=== PATIENT | male | born 2005 | race Caucasian/White ===

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

== ENCOUNTER 2024-07-15 12:23 | Emergency (ER) | payer OTHER, SELFPAY ==
[2024-07-15 12:40] VITALS: BP 120/76; PULSE 105; RESP 18; TEMP 36.7; O2SAT 98
--- NOTE | 2024-07-15 12:51 | ED.NAVMDI ---
HPI - Nausea/Vomiting/Diarrhea General Chief complaint: Nausea/Vomiting/Diarrhea Stated complaint: nausea/abdo pain/diarrhea/chills History of Present Illness HPI Narrative: Patient presents for evaluation of diarrhea nausea and vomiting. No fever no body aches patient states he is tolerating liquids well. Denies any blood or mucus in his stools. Related Data Home Medications ?Medication ?Instructions ?Recorded ?Confirmed ?Last Taken ?Type alprazolam 0.5 mg tablet mg 07/15/24 Unknown History lisdexamfetamine 30 mg capsule mg 07/15/24 Unknown History (Vyvanse) ropinirole 0.5 mg tablet mg 07/15/24 Unknown History trazodone 50 mg tablet mg 07/15/24 Unknown History Allergies Allergy/AdvReac Type Severity Reaction Status Date / Time Cephalosporins Allergy Unknown Rash Verified 07/15/24 12:33 Penicillins Allergy Unknown Rash Verified 07/15/24 12:33 citalopram AdvReac Intermediate Diarrhea Verified 07/15/24 12:33 venlafaxine (From Effexor) AdvReac Aggitation, Verified 07/15/24 12:33 Insomnia, Diarrhea, Angry, Bad mood Review of Systems Review of Systems: CONSTITUTIONAL: Denies fever, chills, or sweats. EYES: Denies visual changes, redness, or discharge. ENT: Denies rhinorrhea, congestion, sore throat, or otalgia. CARDIOVASCULAR: Denies chest pain, palpitations, or edema. RESPIRATORY: Denies cough or dyspnea. GASTROINTESTINAL: Denies abdominal pain, nausea, vomiting, or diarrhea. GENITOURINARY: Denies dysuria or hematuria. SKIN: Denies rash or itching. MUSCULOSKELETAL: Denies back pain, joint pain, or myalgia. NEUROLOGIC: Denies headache, numbness, or weakness. PSYCHIATRIC: Denies anxiety or depression. [facility] Past Medical History Medical History ) Asthma Social History Social History ) Smoking status: Never smoker Alcohol intake: never Substance use: never Substance use type: does not use Lack of Transportation: No Lack of Food: Never True Current Housing: I Have Housing Concerned About Future Housing: No Difficulty Paying Gas/Electric Bills: No Difficulty Paying for Meds: No Currently Unemployed: No Education: High School Diploma/GED Difficulty w/ Childcare or Family Care: No Living arrangements: with family Occupation/Education: occupation Gender identity (if verbalized by the patient): Male Sexual Orientation (if Verbalized by the Patient): Straight or Heterosexual Comments At time of signature, agree with nursing past medical, surgical, social and family history. There is no relevant family history pertinent to the presenting complaint Exam Narrative: GENERAL: Well-appearing, well-nourished, and in no acute distress. HEAD: Normocephalic, atraumatic. EYES: PERRLA and EOMI. ENT: Nares clear, no rhinorrhea or epistaxis. Mucous membranes moist. NECK: Supple. CHEST: Clear to auscultation. No respiratory distress. HEART: Regular rate and rhythm. No murmur heard. Normal peripheral pulses. ABDOMEN: Soft, nontender, nondistended, normal active bowel sounds. EXTREMITIES: Normal range of motion. No edema. SKIN: Warm, dry, no rash. NEURO: No focal deficits. Alert and oriented x3. [place] Coma Scale Eye Opening: Spontaneous 4 [place] Coma Scale Motor: Obeys Commands 6 [place] Coma Scale Verbal: Oriented 5 [place] Coma Scale Total 15 Course Course Level of Care: Express Care Visit Vital Signs Vital signs: Vital Signs Temperature 36.7 C 07/15/24 12:40 Pulse Rate 105 H 07/15/24 12:40 Respiratory Rate 18 07/15/24 12:40 Blood Pressure 120/76 07/15/24 12:40 Pulse Oximetry 98 07/15/24 12:40 Oxygen Delivery Room Air 07/15/24 12:40 Temperature 36.7 C 07/15/24 12:40 Pulse Rate 105 H 07/15/24 12:40 Respiratory Rate 18 07/15/24 12:40 Blood Pressure 120/76 07/15/24 12:40 Pulse Oximetry 98 07/15/24 12:40 Oxygen Delivery Room Air 07/15/24 12:40 Discharge Plan Discharge Clinical Impression: Nausea & vomiting, Diarrhea in adult patient Patient Disposition: Home, Self-Care Condition: Stable Instructions: Antibiotic Form Additional Instructions: Clear liquids for the next 8-10 hours, then advance to a bland diet as tolerated A bland diet can consist of--BRAT diet which is bananas, rice, applesauce, and toast Avoid fried, greasy, fatty, fried foods Avoid caffeine, nicotine, and alcohol Return to your regular diet in the next 3-4 days Medication as directed for nausea and vomiting -If you have any worsening of symptoms or any other concerns please go to the ED immediately. Patient Language: Kyrgyz Prescriptions: New ondansetron 4 mg tablet,disintegrating 4 mg PO Q8H PRN (Reason: nausea and vomiting) Qty: 10 0RF No Action trazodone 50 mg tablet alprazolam 0.5 mg tablet ropinirole 0.5 mg tablet lisdexamfetamine [Vyvanse] 30 mg capsule zolpidem [Ambien] 5 mg tablet 5 mg PO QHS PRN (Reason: insomnia) Qty: 30 0RF Follow-up/Referrals: PHYSICIAN NOT ON STAFF,NONSTAFF [Primary Care Provider] - Stand Alone Forms: Work/School Release IP
--- OUTSIDE RECORDS SUMMARY | 2024-07-20 04:50 | XMS_ITS | Encounter Summary ---
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 Insurance: [employer] ; [facility] Referral Required: NO Benefit exclusion: NO Authorization: NOT REQUIRED Comments: Benefits verified online @ [employer] Provider Website. [employer] . Coverage active effective 08/01/2020. ID# [id number] 05. 500 Deductible (met); 1000 Out of Pocket (500 applied); 80/20 Co-Insurance; No Copay; No Referral required; No Pre-Cert required. S/W Vivian Santoyo @ [employer] Pre-Cert Dept . CPT 75681; 78026 chordee repair no Pre-Cert/Pre-D required. Call ref# Vivian CrChandler 07/13/2021 10:39 AM EST. S/W Michelle Pierce @ [facility] . Coverage active effective 08/01/2020. ID# [id number]. 150 Deductible (12.51 applied); 1058 Out of Pocket (190.04 applied); No Co-Insurance. Select. No Pre-Cert required. [facility] secondary insurance to [employer]. Call ref# Michelle CollazoChandler 07/13/2021. JL 07/13/2021 Luis Villafuerte , A Referral is needed for the patient listed below. Patient: Rashaad Rodney : 2005 DATE OF SERVICE: 07.29.2021 CPT : 38833 DIAGNOSIS CODE : Painful penile erection [N48.30] / Chordee [N48.89] DR : Fortunato Hammond INS : PRIMARY CIGNA / SECONDARY Pat Toth Pre-Certification Coordinator Department of Surgery [facility] ([facility]) Work: [phone] [email or web address] ANIC DRIVER documented in this encounter Plan of Treatment Not on file documented as of this encounter Visit Diagnoses Not on filedocumented in this encounter Care Teams Electrical Engineering Manager Relationship Specialty Start Date End Date Tiff Frost MD [address] [place] [address] PCP - General Pediatrics 10/17/20 documented as of this encounter
--- OUTSIDE RECORDS SUMMARY | 2024-07-20 04:50 | XMS_ITS | Encounter Summary ---
Author Organization [facility] Address [address] [place] [address] Care Team Providers Care Direct Mail Manager Name Role Phone Tiff Frost MD Primary Care Provider [phone] Encounter Details Date Type Department Care Team (Late st Contact Info) Description 10/31/2023 Orders Only [facility] Occupatiuonal Health [address] 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 tuberculosis). ??Patients with recent exposure to TB infected individuals exhibiting a negative T-SPOT.TB result should be considered for retesting within 6 weeks or if other relevant clinical symptoms indicate. ??Results from T-SPOT.TB testing must be used in conjunction with each individual's epidemiological history, current medical status, and results of other diagnostic evaluations. ??The T-SPOT.TB test is qualitative and results are reported as positive, borderline or negative, given that the test controls perform as expected. In line with the Centers for Disease Control and Prevention's 2010 recommendation to report quantitative measurements alongside the qualitative result, the laboratory provides spot counts for informational purposes only. ??The T-SPOT.TB test should not be interpreted as a quantitative test. T-SPOT.TB Panel A Spot Count 1 [facility] ([place] T-SPOT.TB Panel B Spot Count 0 [facility] T-SPOT.TB Negative Control Passed [facility] T-SPOT.TB Positive Control Passed [facility] Comment: Test Performed at: [employer] [address] [place] [address] ??[id number] ? JENNIFER MONTIEL,PHD Blood 10/31/2023 3:06 PM CDT 10/31/2023 3:16 PM CDT Narrative [facility] - 11/02/2023 3:53 PM CDT Bill to [facility] [employer] - [address] Patient is employed by/enrolled at:->[employer] us Sandip Guerra MD LAB MICROBIOLOGY - GENERAL OR DERABLES Final Result [facility] [address] [facility] Department [place] [address] documented in this encounter Visit Diagnoses Diagnosis Pre-employment health screening examination- Primary Health examination of defined subpopulation Pre-employment health screening examination Health examination of defined subpopulation documented in this encounter Care Teams Direct Mail Manager Relationship Specialty Start Date End Date Tiff Frost MD [address] [place] [address] PCP - General Pediatrics 10/17/20 documented as of this encounter
--- OUTSIDE RECORDS SUMMARY | 2024-07-20 04:50 | XMS_ITS | Encounter Summary ---
Author Organization [facility] Address [address] [place] [address] Phone Care Team Providers Care Classifier Tender Name Role Phone Tiff Frost MD Primary Care Provider [phone] Encounter Details Date Type Department Care Team (Late st Contact Info) Description 01/16/2021 Telephone [facility] 2nd [place] [address] [place] [address] Fortunato Hammond MD [address] [place] [address] [address] [address] [place], [place] [id number] Social History Tobacco Use Types Packs/Day Years Used Date Smoking Tobacco: Never Sex and Gender Information Value Date Recorded Sex Assigned at Not on file 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 He notices some bump/irregularity on the shaft of the penis. His biggest concern is painful nighttime erections. These occur at least once a night. He says his erections are straight. I reassured him that this will improve. At this point I would not try to pharmacologically suppressed testosterone production. He will call with continued/progressive concerns documented in this encounter Plan of Treatment Not on file documented as of this encounter Visit Diagnoses Not on filedocumented in this encounter Care Teams Classifier Tender Relationship Specialty Start Date End Date Tiff Frost MD [address] [place] [address] PCP - General Pediatrics 10/17/20 documented as of this encounter
--- OUTSIDE RECORDS SUMMARY | 2024-07-20 04:50 | XMS_ITS | Encounter Summary ---
Author Organization [facility] Healthcare Address [address] [place] [address] Care Team Providers Care Organic Chemist Name Role Phone Tiff Frost MD Primary Care Provider [phone] Encounter Details Date Type Department Care Team (Late st Contact Info) Description 01/01/2021 4:46 PM CDT Anesthesia Event [facility] [place] [address] Carlton Calvo MD [address] [place] [address] Tremayne Hernandez NP [address] [facility] [place] [address] Anesthesia Record Procedure Summary Procedure Name Responsible Anesthesiologist Anesthesia Start Time Anesthesia Stop Time CHORDEE REPAIR (Penis) Carlton Calvo MD 01/01/21 1646 01/01/21 1825 Events Date Time Event Comment 01/01/2021 1458 1646 An Start 1650 An Start Data 1650 In Room 1653 An Induction The patient was reevaluated immediately before moderate or deep sedation use and before anesthesia induction. 1658 An LMA 1702 Anesthesia Ready 1709 Incision Start 1819 Airway Removed 181 Out of Room 1825 Handoff to RN I completed my handoff to the receiving nurse during which we: 1. Patient identified 2. Responsible provider identified 3. Pertinent medical history reviewed 4. Procedure type and surgical course discussed 5. Intraoperative anesthetic management and any significant issues discussed 6. Expectations and concerns for postop period discussed 7. Questions solicited from receiving nurse 8. Patient disposition at the time of handoff: PACU 1825 An Stop Meds Name Total lidocaine 1 % PF 40 mg propofol 500 mg dexamethasone 4 mg/ml 4 mg ondansetron PF 2 mg/mL 4 mg HYDROmorphone 0.2 mg/mL 200 mcg midazolam PF 2 mg LR 0 mL * Agents Name N2O O2 Air Sevoflurane Inspired Sevoflurane * Blood No blood administrations on file. Lines, Drains, and Airways Type Details Placement Removal Oral/Nasal Airway Placement Date: 01/01/21; Non-Surgical Airway Device: Oral pharyngeal airway; Placed By: Anesthesiologist; Removal Date: 01/01/21; Removal Time: 184801/01/21 0000 by Goldie Perez RN 01/01/21 184 by Goldie Perez RN Peripheral IV Placement Date: 01/01/21; Placement Time: 154; Catheter Size: 22 G; Orientation: Left, Posterior; Location: Hand; Site Prep: Chlorhexidine; Inserted by: Kari Rose RN; Insertion Attempts: 1; Patient Tolerance: Tolerated well; Removal Date: 01/01/21; Removal Time: 1919; Removal Reason: Discharge 01/01/21 1543 by Shaista Patterson RN 01/01/21 192 by Goldie Perez RN Supraglottic Airway Placement Date: 01/01/21; Placement Time: 1712 (created via procedure documentation); Mask Ventilation: 1; Size: 4; Insertion Attempts: 1; Removal Date: 01/01/21; Removal Time: 181801/01/21 1713 by Carlton Calvo MD 01/01/21 1819 by Sera Quintanilla MD RETIRED Surgical Site 01/01/21; 1743; Pe nis; 07/03/24 (Retired LDA, 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 [employer] with LDA Utility); 1213 (Retired LDA, 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 [employer] with LDA Utility) 01/01/21 1743 by Priscilla Mosley RN 07/03/24 1213 by Discharge Provider, Automatic documented in this encounter Social History Tobacco Use Types Packs/Day Years Used Date Smoking Tobacco: Never Sex and Gender Information Value Date Recorded Sex Assigned at Not on file 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 Gender Identity Not on file Sexual Orientation Not on file documented as of this encounter OR Notes * Anesthesia Postprocedure Evaluation - Sera Quintanilla MD - 01/01/2021 7:02 PM CDT Patient: Rashaad Rodney Procedure Summary Date: 01/01/21 Room / Location: [address] OPERATING ROOM Anesthesia Start: 164 Anesthesia Stop: 1824 Procedure: CHORDEE REPAIR (N/A Penis) 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]) Providers: Fortunato Hammond MD Responsible Provider: aCrlton Calvo MD Anesthesia Type: general ASA Status: 2 Anesthesia Type: general Last vitals BP 101/53 (BP Location: Right arm, Patient Position: Lying) Pulse 82 Temp 36.7 ??C (98.1 ??F) (Temporal) Resp 16 SpO2 98% Anesthesia Post Evaluation Patient location during evaluation: PACU Patient participation: complete - patient participated Level of consciousness: fully awake Pain management: adequate Airway patency: patent Evidence of recall: no Cardiovascular status: hemodynamically stable Respiratory status: room air Hydration status: acceptable Pt is: normothermic Nausea/Vomiting status: none No complications documented. * Anesthesia Procedure Notes - Carlton Calvo MD - 01/01/2021 5:13 PM CDT Associated Order(s): Airway Airway Patient location: OR Urgency: elective Indications for airway management: airway protection Difficult airway: no Staff: Supervising provider: Carlton Calvo MD Placed by: Resident: Tolu Skelton MD Emergent airway documentation: Risks and benefits discussed: yes Consent obtained: yes Consent given by: parent Airway prep: Preoxygenated: yes Patient position: sniffing Mask difficulty assessment: 1 - vent by mask Spontaneous ventilation during airway: present Sedation level during airway: GA Final airway details: Final airway type: supraglottic airway Final supraglottic airway: unique SGA size: 4 Number of attempts: 1 Planned trial extubation: yes * Anesthesia Preprocedure Evaluation - Carlton Calvo MD - 01/01/2021 3:03 PM CDT Images from the original note were not included. Anesthesia Evaluation Rashaad Rodney is a 15 y.o. male Procedure(s): CHORDEE REPAIR Pre-Op Diagnosis Codes: * Chordee [N48.89] HISTORY HPI Rashaad Rodney is an 15 y.o. male with history of chordee who presents today for repair. Past Medical History Information obtained from: patient, guardian and chart. Neurological Pertinent negatives: seizures Cardiovascular Cardiac system: negative Respiratory + Asthma/RAD (had not required albuterol for years until 06/2020 infection with covid 19. Has not required since) Pertinent negatives: recent URI and sleep apnea (SALIMA) Comments: History of Covid 19 infection Jun 2020 Hepatic Hepatic system: negative Hematological / Oncological Hematological/Oncological system: negative Gastrointestinal GERD: occasional GERD symptoms when overeats - no medication Renal / Renal/ system: negative Endocrine / Other Endocrine/Other system: negative Growth / Development Comments: Depression Review of Systems Pertinent negatives: productive cough; wheezing; SOB; recent cold/flu; fever and chipped/loose teeth PAT Summary and Plans Additional comments: Prior [place] OSH, no reported problems No family history of GA problems Discussed GA plan with father and patient; Plan for IV induction, airway, and recovery. SE and risks discussed, all questions answered. . Patient Active Problem List Diagnosis ??? Chordee Past Medical History: Diagnosis Date ??? Abdominal pain 09/2020 hospitalized for 3 days ??? ADD (attention deficit disorder) ??? Allergic epi pen used after anaphylaxis ??? Asthma ??? Chordee ??? Constipation ??? COVID-19 06/2020 Past Surgical History: Procedure Laterality Date ??? TONSILLECTOMY/ADENOIDECTOMY at 3yo Allergies Allergen Reactions ??? Keflex [Cephalexin] Anaphylaxis and Rash ??? Penicillin G Hives Taking? Last Dose Start Date End Date Provider escitalopram (LEXAPRO) 10 mg tablet 12/31/2020 10/20/20 -- ProviderTrenton MD Vyvanse 30 mg capsule Past Month 10/20/20 -- ProviderTrenton MD Current Facility-Administered Medications: ??? lidocaine 1% buffered injection 0.1 mL, 0.1 mL, subcutaneous, PRN Social History Tobacco Use Smoking Status Never Smoker Substance and Sexual Activity Alcohol Use Not on file Substance and Sexual Activity Drug Use Not on file Family History Problem Relation Age of Onset ??? Urolithiasis Father ??? Diabetes Mother PAT Physical Exam Airway Exam: Mallampati: I Cervical ROM: FROM TM distance: 3 Jaw ROM: full Cardiovascular Exam: Rate: regular Rhythm: regular Pulmonary Exam: LCTA, bilat EENT Exam: trachea midline Dental Exam: Braces and appears intact Skin Exam: Skin is warm and dry. Turgor is normal. Abdominal exam: Abdomen is soft. Current state: Patient's current state is cooperative and interactive. Vitals: 01/01/21 1420 BP: (!) 130/96 Pulse: 86 Resp: 16 Temp: 36.8 ??C (98.2 ??F) SpO2: 98% PT: No results found for requested labs within last 720 hours. INR: No results found for requested labs within last 720 hours. APTT: No results found for requested labs within last 720 hours. Hgb A1C: No results found for requested labs within last 720 hours. CBC RBC: No results found for requested labs within last 720 hours. RDW: No results found for requested labs within last 720 hours. MCHC: No results found for requested labs within last 720 hours. MCH: No results found for requested labs within last 720 hours. MCV: No results found for requested labs within last 720 hours. Hct: No results found for requested labs within last 720 hours. Hgb: No results found for requested labs within last 720 hours. WBC: No results found for requested labs within last 720 hours. MPV: No results found for requested labs within last 720 hours. Platelets: No results found for requested labs within last 720 hours. RDW CV: No results found for requested labs within last 720 hours. RDW Sd: No results found for requested labs within last 720 hours. BMP Glucose: No results found for requested labs within last 720 hours. Calcium: No results found for requested labs within last 720 hours. Sodium: No results found for requested labs within last 720 hours. Potassium: No results found for requested labs within last 720 hours. CO2: No results found for requested labs within last 720 hours. Chloride: No results found for requested labs within last 720 hours. BUN: No results found for requested labs within last 720 hours. Creatinine: No results found for requested labs within last 720 hours. DOS Physical Exam Medical history, medications, and allergies reviewed. Attestation: This PAT evaluation 01/01/2021. Airway Exam: Mallampati: I TM distance: normal Jaw ROM: full Cardiovascular Exam: Rate: regular Rhythm: regular Pulmonary Exam: LCTA, bilat Dental Exam: Appears intact and braces Current state: Patient's current state is cooperative and interactive. Lines/Drains/Tubes/Devices Lines in situ (PIV): Anesthesia Plan ASA 2 Planned anesthesia: General Team communication plan: LMA Induction: Induction: intravenous. Postoperative Plan: No plan for postoperative opioid use. No postoperative mechanical ventilation intended. Patient's planned disposition post procedure is Outpatient. Planned trial extubation. Informed Consent: Discussed plan with resident. Anesthesia plan and risks discussed with patient and father. Consent and Attending signature: I and/or my designee have discussed the anesthesia plan, benefits, possible alternatives, parental presence at time of induction (if indicated), and clinically relevant risks that may include dental injury, unintentional awareness, and/or other complications. The patient and/or parent/legal guardian understand, and agree to proceed. All questions answered. documented in this encounter Plan of Treatment Not on file documented as of this encounter Procedures Procedure Name Priority Date/Time Associated Diagnosis Comments MI AN PROCEDURE PLACEHOLDER Routine 01/01/2021 5:13 PM CDT MI AN ELECTIVE SUPRAGLOTTIC AIRWAY Routine 01/01/2021 5:13 PM CDT documented in this encounter Results * MI AN ELECTIVE SUPRAGLOTTIC AIRWAY, MI AN PROCEDURE PLACEHOLDER (01/01/2021 5:13 PM CDT) Narrative Carlton Calvo MD - 01/01/2021 5:13 PM CDT Carlton Calvo MD ? 01/01/2021 ??5:13 PM Airway Patient location: OR Urgency: elective Indications for airway management: airway protection Difficult airway: no Staff: Supervising provider: Carlton Calvo MD Placed by: Resident: Tolu Skelton MD Emergent airway documentation: Risks and benefits discussed: yes Consent obtained: yes Consent given by: parent Airway prep: Preoxygenated: yes Patient position: sniffing Mask difficulty assessment: 1 - vent by mask Spontaneous ventilation during airway: present Sedation level during airway: GA Final airway details: Final airway type: supraglottic airway Final supraglottic airway: unique SGA size: 4 Number of attempts: 1 Planned trial extubation: yes us Carlton Calvo MD ANESTHESIA ORDERABLES Final Res ult documented in this encounter Visit Diagnoses Not on filedocumented in this encounter Administered Medications Inactive Administered Medications - up to 3 most recent administrations Medication Order MAR Action Action Date Dose Rate Site dexAMETHasone (DECADRON) 4 mg/mL injection intravenous, Administer over 30 Minutes, As needed, Starting on Mary 01/01/21 at 1711, Anesthesia Intra-op Given 01/01/2021 5:11 PM CDT 4 mg HYDROmorphone (PF) (DILAUDID) injection intravenous, Administer over 5 Minutes, As needed, Starting on Mary 01/01/21 at 1653, Anesthesia Intra-op Given 01/01/2021 4:53 PM CDT 200 mcg Lactated Ringer's (LR) infusion intravenous, Continuous PRN, Starting on Mary 01/01/21 at 1653, Anesthesia Intra-op New Bag 01/01/2021 4:53 PM CDT lidocaine PF (XYLOCAINE) 10 mg/mL (1 %) preservative free injection intravenous, As needed, Starting on Mary 01/01/21 at 1653, Anesthesia Intra-op Given 01/01/2021 4:53 PM CDT 40 mg midazolam (VERSED) 1 mg/mL preservative free injection intravenous, Administer over 2 Minutes, As needed, Starting on Mary 01/01/21 at 1646, Anesthesia Intra-op Given 01/01/2021 4:46 PM CDT 2 mg ondansetron (ZOFRAN) injection intravenous, Administer over 15 Minutes, As needed, Starting on Mary 01/01/21 at 1711, Anesthesia Intra-op Given 01/01/2021 5:11 PM CDT 4 mg propofoL (DIPRIVAN) 10 mg/mL IV intravenous, As needed, Starting on Mary 01/01/21 at 1708, Anesthesia Intra-op Given 01/01/2021 5:08 PM CDT 100 mg Given 01/01/2021 4:55 PM CDT 100 mg Given 01/01/2021 4:54 PM CDT 100 mg documented in this encounter Care Teams Organic Chemist Relationship Specialty Start Date End Date Tiff Frost MD [address] [place] [address] PCP - General Pediatrics 10/17/20 documented as of this encounter
--- OUTSIDE RECORDS SUMMARY | 2024-07-20 04:50 | XMS_ITS | Encounter Summary ---
Author Organization [facility] Healthcare Address [address] [place] [address] Care Team Providers Care Acute Specialist Name Role Phone Suhas Collins MD Primary Care Provider [phone] Reason for Visit * Reason Comments Shoulder Injury Encounter Details Date Type Department Care Team (Late st Contact Info) Description 03/10/2019 11:15 PM CDT - 03/11/2019 12:22 [place] [address] Acute pain of right shoulder (Primary Dx); Pain of right thumb Discharge Disposition: Discharge to home or self care Social History Tobacco Use Types Packs/Day Years Used Date Smoking Tobacco: Never Assessed Sex and Gender Information Value Date Recorded Sex Assigned at Not on file 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 Gender Identity Not on file Sexual Orientation Not on file documented as of this encounter Last Filed Vital Signs Vital Sign Reading Time Taken Comments Blood Pressure 140/80 03/10/2019 10:52 PM CDT Pulse 64 03/11/2019 12:20 AM CDT Temperature 37.4 ??C (99.3 ??F) 03/11/2019 12:20 AM C DT Respiratory Rate 20 03/11/2019 12:20 AM CDT Oxygen Saturation - - Inhaled Oxygen Concentration - - Weight 60.6 kg (133 lb 9.6 oz) 03/10/2019 10:48 PM CDT Height - - Body Mass Index - - documented in this encounter Discharge Diagnoses Diagnosis Pain in right shoulder - PAIN IN RIGHT SHOULDER Pain of finger of right hand - PAIN IN RIGHT FINGER(S) Struck by baseball - STRUCK BY BASEBALL, INITIAL ENCOUNTER Activity involving spectator at an event - ACTIVITY, SPECTATOR AT AN EVENT Other specified sports and athletic area as the place of occurrence of the external cause - OTHER SPECIFIED SPORTS AND ATHLETIC AREA THE PLACE OF OCCURRENCE OF THE EXTERNAL CAUSE External cause status - UNSPECIFIED EXTERNAL CAUSE STATUS documented in this encounter Discharge Instructions * Discharge Instructions* Turner Martínez PA - 03/11/2019 12:16 AM CDT You were seen today in the ED and diagnosed with right shoulder and thumb injury. Please seek further medical treatment if you child becomes lethargic, develops difficulty breathing, has a seizure, or appears to be in severe pain or other concerns arise. Please give ibuprofen and tylenol as needed for pain and/or fever. Please follow-up with your avionics engineer in 1 week for re-eval. Please follow-up with orthopedics in 1 week if your pain does not improve. * Attachments The following attachments cannot be sent through Care Everywhere. * LUIS MANUEL (Israeli) documented in this encounter Medications at Time of Discharge ibuprofen (ADVIL,MOTRIN) 600 mg tabletIndications :Pain Take 1 tablet (600 mg total) by mouth every 6 (six) hours as needed for pain 30 tablet 03/11/2019 12/25/2020 documented as of this encounter Ordered Prescriptions Prescription Sig Dispense Quantity Refills Last Filled Start Date End Date ibuprofen (ADVIL,MOTRIN) 600 mg tabletIndications: Pain Take 1 tablet (600 mg total) by mouth every 6 (six) hours as needed for pain 30 tablet 03/11/2019 12/25/2020 documented in this encounter Discharge Disposition Disposition Code Departure Means Destination Discharge to home or self care documented in this encounter ED Notes * Turner Martínez PA - 03/10/2019 11:31 PM CDT HPI Chief Complaint Patient presents with ??? Shoulder Injury Pt is a previously healthy 13 year old male who presents to the ED after being struck in the right thumb and right shoulder with a foul ball while at a baseball game, pt states he saw the ball comingtowards him and put his arm out, this is when it struck his thumb and then struck his shoulder. Pt took some tylenol, and came to the ED. Pt arrives wrapped up from the whale trainer, xrays were ordered in nursing triage, and he was placed in a room. Pt is neurovascularly intact to his right arm. He has good pulses, sensation intact to all fingers, and is able to wiggle his fingers without limitation. He is able to passively move his right shoulder in its full ROM, but active movement is limi angle secondary to pain. Same with his right thumb. Pt has no prior medical history, no prior surgical history, his immunizations are up to date. Patient History There are no active problems to display for this patient. Past Medical History: Diagnosis Date ??? Asthma No past surgical history on file. No family history on file. Social History Tobacco Use ??? Smoking status: Not on file Substance Use Topics ??? Alcohol use: Not on file ??? Drug use: Not on file Social History Social History Narrative ??? Not on file Review of Systems Review of Systems Constitutional: Negative for activity change, appetite change, chills and fever. HENT: Negative for congestion, ear pain, rhinorrhea and sore throat. Eyes: Negative for pain and visual disturbance. Respiratory: Negative for cough and shortness of breath. Cardiovascular: Negative for chest pain and palpitations. Gastrointestinal: Negative for abdominal distention, abdominal pain, diarrhea, nausea and vomiting. Genitourinary: Negative for dysuria and hematuria. Musculoskeletal: Negative for arthralgias, back pain, gait problem and neck pain. Right thumb and shoulder pain Skin: Negative for color change and rash. Neurological: Negative for dizziness, seizures, syncope, weakness, light- headedness, numbness and headaches. All other systems reviewed and are negative. Physical Exam ED Triage Vitals [03/10/19 2252] Temp Pulse Resp BP SpO2 37.2 ??C (99 ??F) 70 22 (!) 140/80 -- Temp src Heart Rate Source Patient Position BP Location FiO2 (%) Temporal -- -- -- -- Physical Exam Constitutional: He is oriented to person, place, and time. He appears well- developed and well-nourished. No distress. HENT: Head: Normocephalic and atraumatic. Eyes: Pupils are equal, round, and reactive to light. Conjunctivae are normal. Right eye exhibits no discharge. Left eye exhibits no discharge. Neck: Normal range of motion. Neck supple. Cardiovascular: Normal rate, regular rhythm and normal heart sounds. No murmur heard. Pulmonary/Chest: Effort normal and breath sounds normal. No respiratory distress. He has no wheezes. He exhibits no tenderness. Abdominal: Soft. He exhibits no distension. There is no tenderness. Musculoskeletal: He exhibits tenderness. He exhibits no edema or deformity. Patient with full passive ROM to right shoulder and right thumb, active ROM limited secondary to pain. Pt with tenderness to shoulder musculature, and thumb musculature. No specific tenderness to ella prominences. No other tenderness or limitation noted. Neurological: He is alert and oriented to person, place, and time. No sensory deficit. He exhibits normal muscle tone. Coordination normal. Skin: Skin is warm and dry. Capillary refill takes less than 2 seconds. He is not diaphoretic. Psychiatric: He has a normal mood and affect. Nursing note and vitals reviewed. MDM MDM Number of Diagnoses or Management Options Diagnosis management comments: Pt is a previously healthy 13 y/o male who presents to the ED after being struck by a foul ball at a baseball game in the right thumb and right shoulder. Pt denies it striking any other part of him, including his head or chest. Pt has no respiratory concerns, no obvious distress or deformity. Pt took tylenol prior to coning to the ED. Will give a dose of ibuprofen,await radiology read on xray (my read negative), and place in sling for comfort. DDX: high concern for muscular injury, low concern for osseous injury. Likely sprain ED Course as of Mar 11 35 Time: 03/11 14 Comment: Rad read: no acute osseous injury. Will d./c home with PMD follow up in one week, ortho f/u in 1 week if pain is not improved By: JAIRO Rodriguez Acute pain of right shoulder Pain of right thumb JAIRO Rodriguez 03/11/19 0035 * Yuliana Donahue RN - 03/10/2019 11:15 PM CDT Bed: ED1-06 Expected date: Expected time: Means of arrival: Car Comments: Yuliana Donahue RN 03/10/19 2315 * Elly Jansen RN - 03/10/2019 10:49 PM CDT Pt was hit with baseball on R shoulder and R thumb documented in this encounter Plan of Treatment Not on file documented as of this encounter Procedures Procedure Name Priority Date/Time Associated Diagnosis Comments XR FINGER THUMB RIGHT ED 03/10/2019 11:30 PM CDT XR SHOULDER RIGHT 2 OR MORE VIEWS ED 03/10/2019 11:30 PM CDT documented in this encounter Results * XR Finger Thumb Right Minimum 2 Views (03/10/2019 11:30 PM CDT) Anatomical Region Laterality Modality Upper Extremities, Hand, Fingers Right Computed Radiography 03/11/2019 12:1 3 AM CDT Impressions 03/11/2019 7:30 AM CDT Normal radiographs of the right shoulder and right thumb Dictated by: Anthony Martinez M.D. The radiology attending physician has personally reviewed this study, and had reviewed and/or edited this written report and agrees with it. Electronically signed by: John Johnson M.D. Narrative 03/11/2019 7:30 AM CDT EXAMINATION: ??XR SHOULDER RIGHT 2 OR MORE VIEWS, XR FINGER THUMB RIGHT MINIMUM 2 VIEWS HISTORY: ??Pain COMPARISON: ??None FINDINGS: Right shoulder: 3 views of the right shoulder were submitted for interpretation without comparison. ??No acute fracture of the right shoulder is identified. ??The right acromioclavicular and glenohumeral joints are normal. Right thumb: 3 views of the right thumb were submitted for interpretation. ??No acute fracture of the right thumb is identified. The joint spaces are normal. Procedure Note John Johnson MD - 03/11/2019 EXAMINATION: XR SHOULDER RIGHT 2 OR MORE VIEWS, XR FINGER THUMB RIGHT MINIMUM 2 VIEWS HISTORY: Pain COMPARISON: None FINDINGS: Right shoulder: 3 views of the right shoulder were submitted for interpretation without comparison. No acute fracture of the right shoulder is identified. The right acromioclavicular and glenohumeral joints are normal. Right thumb: 3 views of the right thumb were submitted for interpretation. No acute fracture of the right thumb is identified. The joint spaces are normal. IMPRESSION: Normal radiographs of the right shoulder and right thumb Dictated by: Anthony Martinez M.D. The radiology attending physician has personally reviewed this study, and had reviewed and/or edited this written report and agrees with it. Electronically signed by: John Johnson M.D. us Melody Segura MD IMG XR PROCEDURES Final Re sult * XR Shoulder Right 2+ views (03/10/2019 11:30 PM CDT) Anatomical Region Laterality Modality Upper Extremities, Shoulder Right Comp uted Radiography 03/11/2019 12:1 3 AM CDT Impressions 03/11/2019 7:30 AM CDT Normal radiographs of the right shoulder and right thumb Dictated by: Anthony Martinez M.D. The radiology attending physician has personally reviewed this study, and had reviewed and/or edited this written report and agrees with it. Electronically signed by: John Johnson M.D. Narrative 03/11/2019 7:30 AM CDT EXAMINATION: ??XR SHOULDER RIGHT 2 OR MORE VIEWS, XR FINGER THUMB RIGHT MINIMUM 2 VIEWS HISTORY: ??Pain COMPARISON: ??None FINDINGS: Right shoulder: 3 views of the right shoulder were submitted for interpretation without comparison. ??No acute fracture of the right shoulder is identified. ??The right acromioclavicular and glenohumeral joints are normal. Right thumb: 3 views of the right thumb were submitted for interpretation. ??No acute fracture of the right thumb is identified. The joint spaces are normal. Procedure Note John Johnson MD - 03/11/2019 EXAMINATION: XR SHOULDER RIGHT 2 OR MORE VIEWS, XR FINGER THUMB RIGHT MINIMUM 2 VIEWS HISTORY: Pain COMPARISON: None FINDINGS: Right shoulder: 3 views of the right shoulder were submitted for interpretation without comparison. No acute fracture of the right shoulder is identified. The right acromioclavicular and glenohumeral joints are normal. Right thumb: 3 views of the right thumb were submitted for interpretation. No acute fracture of the right thumb is identified. The joint spaces are normal. IMPRESSION: Normal radiographs of the right shoulder and right thumb Dictated by: Anthony Martinez M.D. The radiology attending physician has personally reviewed this study, and had reviewed and/or edited this written report and agrees with it. Electronically signed by: John Johnson M.D. us Melody Segura MD IMG XR PROCEDURES Final Re sult documented in this encounter Visit Diagnoses Diagnosis Acute pain of right shoulder- Primary Pain of right thumb documented in this encounter Administered Medications Inactive Administered Medications - up to 3 most recent administrations Medication Order MAR Action Action Date Dose Rate Site ibuprofen (ADVIL,MOTRIN) tablet/capsule 600 mg 600 mg, oral, Once, On 03/10/19 at 2331, For 1 dose, Maximum dose = 600 mg Given 03/10/2019 11:49 PM CDT 600 mg documented in this encounter Active and Recently Administered Medications Times are shown in CDT. Scheduled Medication Order 03/09/2019 03/10/2019 03/11/2019 ibuprofen (ADVIL,MOTRIN) tablet/capsule 600 mg (COMPLETED) 600 mg, oral, Once, On 03/10/19 at 2331, For 1 dose, Maximum dose = 600 mg 2349 (Given - Provider: Margie Fernández, EMT-P) documented in this encounter Orders Medications Ordered That Biju ht Not Have Been Administered Count Last Ordered Date First Ordered Date ibuprofen (ADVIL,MOTRIN) tab let/capsule 600 mg 1 03/10/2019 Nursing Count Last Ordered Date First Orde red Date BRACE APPLICATION 1 03/10/2019 documented in this encounter Care Teams Acute Specialist Relationship Specialty Start Date End Date Suhas Collins MD [address] [place] [id number] PCP - General 03/10/19 10/16/20 documented as of this encounter
--- OUTSIDE RECORDS SUMMARY | 2024-07-20 04:50 | XMS_ITS | Encounter Summary ---
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
--- OUTSIDE RECORDS SUMMARY | 2024-07-20 04:50 | XMS_ITS | Encounter Summary ---
Author Organization [facility] Address [address] [place] [address] Phone Care Team Providers Care Ranch Helper Name Role Phone Tiff Frost MD Primary Care Provider [phone] Reason for Visit * Reason Comments New Patient chordee; painful ere ctions * Consultation (Routine) - Closed Specialty Diagnoses / Procedures Referred By Briseida martin Referred To Contact Pediatric Urology Diagnoses Chordee Tiff Frost MD [address] [place] [address] Phone: tel: fax: Fortunato Hammond MD [id number] [place] [address] Phone: tel: fax: Referral ID Status Reason Start Date Expiration Date V isits Requested Visits Authorized [id number] Closed Specialty Services Required 10/17/2020 11/16/2021 99 99 Encounter Details Date Type Department Care Team (Late st Contact Info) Description 11/14/2020 12:30 PM CDT Office Visit [facility] 2[address] [place] [address] [place] [address] Fortunato Hammond MD [address] [facility] [address] [place] [address] [place] Social History Tobacco Use Types Packs/Day Years Used Date Smoking Tobacco: Never Sex and Gender Information Value Date Recorded Sex Assigned at Not on file 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 Gender Identity Not on file Sexual Orientation Not on file documented as of this encounter Last Filed Vital Signs Vital Sign Reading Time Taken Comments Blood Pressure - - Pulse - - Temperature - - Respiratory Rate - - Oxygen Saturation - - Inhaled Oxygen Concentration - - Weight 63.5 kg (140 lb) 11/14/2020 12:20 PM CDT Height 177.8 cm (5' 10 ) 11/14/2020 12:20 PM CDT Body Mass Index 20.09 11/14/2020 12:20 PM CDT Body Mass Index Percentile 28.19% 11/14/2020 12: 20 PM CDT Growth Chart: [facility] (Boys, 2-2 0 Years) documented in this encounter Progress Notes * Fortunato Hammond MD - 11/14/2020 12:30 PM CDT Images from the original note were not included. 2Identification: I was requested to see Rashaad Georgiemartha to evaluate penile curvature by Dr. Tiff Frost MD. Chief Complaint Patient presents with ??? New Patient chordee; painful erections HPI: Rashaad is 15. 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 He says that he has always had penile curvature to theleft. He estimates the magnitude is greater than 45 degrees. He is not sexually active but has concerns that this will be problem. He says that his erections are painful. Some of the discomfort resolves if he voids. No dysuria, urgency, frequency or other voiding symptoms. Review of systems Please refer to the Pediatric Urology Child history form dated: 11/15/2020. This was reviewed with the family today and scanned into the media section of the EMR. Physical Exam Vitals: 11/14/20 1220 Weight: 63.5 kg (140 lb) Height: 177.8 cm (5' 10 ) Constitutional: no acute distress/healthy appearing Neuro: alert, appropriate Eyes: pupils equal Skin: no rashes GI: abdomen soft and nontender, no masses, no hernias Back/Spine: normal looking to inspection & palpation Lymphatic: inguinal nodes nonpalpable : Penis: circumcised, corporal disproportion with curvature to the left. No palpable plaques Meatus: normal Scrotum/Testes: Normal looking to inspection & palpation. Bilaterally descended testes. No hernia or hydrocele. Underwear is dry Leroy Assessment and Plan: It was a pleasure seeing Rashaad Rodney in clinic today. I reviewed the history and findings with Rashaad and his father. 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 The right corporal body is longer than the left. It is unclear why his erections are 'painful'. He accepts that this may be a 'normal' sensation. The discomfort is not related to the curvature.We discussed the pros and cons of correction of the penile curvature. We discussed correction options of grafting to lengthen the left corporal body or plication to shorten the right corpus. Given that his penile length is normal plication is preferable as grafting might adversely affect erections (venous leak). We discussed the procedure, anesthetic and post-operative expectations in detail. We have scheduled the outpatient procedure in early December. Thank you for allowing us to participate in the care of this patient. Please do not hesitate to contact us should you have any questions or concerns at [phone]. documented in this encounter Plan of Treatment Not on file documented as of this encounter Visit Diagnoses Diagnosis Chordee Other specified disorder of penis documented in this encounter Historical Medications * This list may reflect changes made after this encounter. Vyvanse 30 mg capsule TAKE 1 CAPSULE BY MOUTH EVERY DAY AT 8AM 10/20/2020 07/20/2021 escitalopram (LEXAPRO) 10 mg tablet Take 10 mg by mouth every morning 10/20/2020 07/20/2021 added in this encounter Orders Outpatient Referral Count Last Ordered Date Fir st Ordered Date AMB REFERRAL TO PEDIATRIC UROLOGY 1 021 documented in this encounter Care Teams Ranch Helper Relationship Specialty Start Date End Date Tiff Frost MD [address] [place] [address] PCP - General Pediatrics 10/17/20 documented as of this encounter
--- OUTSIDE RECORDS SUMMARY | 2024-07-20 04:50 | XMS_ITS | Encounter Summary ---
Author Organization [facility] Healthcare Address [address] [place] [address] Care Team Providers Care Aircraft Body Repairer Name Role Phone Tiff Frost MD Primary Care Provider [phone] Encounter Details Date Type Department Care Team (Late st Contact Info) Description 01/01/2021 2:00 PM CDT - 01/01/2021 7:50 PM CDT Hospital Encounter [facility] [place] [address] [place] [address] Fortunato Hammond MD 1 [facility] [address] [place] [address] Discharge Disposition: Discharge to home or self care Social History Tobacco Use Types Packs/Day Years Used Date Smoking Tobacco: Never Sex and Gender Information Value Date Recorded Sex Assigned at Not on file 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 Gender Identity Not on file Sexual Orientation Not on file documented as of this encounter Last Filed Vital Signs Vital Sign Reading Time Taken Comments Blood Pressure 108/65 01/01/2021 7:20 PM CDT Pulse 72 01/01/2021 7:20 PM CDT Temperature 36.5 ??C (97.7 ??F) 01/01/2021 7:20 PM CD T Respiratory Rate 24 01/01/2021 7:20 PM CDT Oxygen Saturation 99% 01/01/2021 7:20 PM CDT Inhaled Oxygen Concentration - - Weight 67 kg (147 lb 11.3 oz) 01/01/2021 7:20 PM CDT Height 184 cm (6' 0.44 ) 01/01/2021 2:20 PM CDT Body Mass Index 19.79 01/01/2021 2:20 PM CDT Body Mass Index Percentile 22.82% 01/01/2021 7:2 0 PM CDT Growth Chart: [facility] (Boys, 2-2 0 Years) documented in this encounter Discharge Diagnoses 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 - OTHER SPECIFIED BEHAVIORAL AND EMOTIONAL DISORDERS WITH ONSET USUALLY OCCURRING IN CHILDHOOD AND ADO Other penitentiary (current) drug therapy - OTHER RESIDENTIAL (CURRENT) DRUG THERAPY Personal history of COVID-19 - PERSONAL HISTORY OF COVID-19 Allergy status to penicillin - ALLERGY STATUS TO PENICILLIN Allergy status to other antibiotic agents - ALLERGY STATUS TO OTHER ANTIBIOTIC AGENTS documented in this encounter Discharge Instructions * Discharge Instructions* Goldie Perez RN - 01/01/2021 6:34 PM CDT Discharge Instructions: Diagnosis: Phimosis Surgery performed: correction of penile curvature Wound: - Incision is closed with stitches that will dissolve over 2 weeks - Ok to bathe tomorrow - You can remove the dressing from the penis when you get home tonight New medications: - Tylenol and ibuprofen scheduled for the next 72 hours. Afterwards as needed Please alternate between these medications. Diet: Resume usual diet. Keep well hydrated. Activity: As tolerated Follow up: No follow up needed. Call the urology office if having issues. Contact your doctor if: - Fever over 100.8 - Pain uncontrolled by prescribed medications - Pus from wound or severe redness - Constant bleeding from incision. Mild oozing and spotting of the diaper is normal. - Nausea/vomiting Tuesday through Tuesday, 8 AM to 4:30 PM, call [phone] and ask for a member of your doctor's team. After 4:30 PM during the week, on weekends and holidays, call [phone] and ask to have the Urology Time Clock Repairer Physician paged for you. Discharge Instructions for Children Receiving Anesthesia Although your child is now awake and ready to go home, some of the side effects of anesthesia may last for several hours. If you have any concerns, please use the following contact numbers: Emergencies Call 911 ?? If your child is having a hard time breathing ?? Unable to speak or cry because of difficulty breathing ?? Lips or fingernails are turning blue or white ?? You are unable to wake your child Non-Emergencies Call Same Day Surgery (during regular business hours) Call (after 4pm and weekends) ask for the Anesthesia Physician industrial relations worker ?? If your child is vomiting more than 3 times after leaving the hospital ?? Has increasing pain ?? Has an unexplained fever over 101 degrees Fahrenheit ?? Any sign of infection at IV/Procedure site: increasingly tender, red, swollen, drainage. ?? Any other concerns Home Care Instructions A. Safety ?? Your child should NOT be left unattended and should be watched very closely ?? Keeping your child safe is especially important after anesthesia ?? Your child may want to sleep. This is normal and OK. It is important to place your child on their side or back while they sleep and to check on them frequently. ?? Always keep your child in a properly sized car seat for their age and weight. ?? While in the car set, observe head position and breathing. Your child may fall asleep causing their head to fall forward or to the side. This can block their airway and make it hard for your childto breathe. If this happens, you may hear your child snore. Reposition your child's head to keep the neck straight with chin off the chest. B. Activity ?? Some children may experience behavior changes and/or irritability after sedation. ?? Your child may be dizzy, less alert or unsteady. Your child should not walk or crawl unattended for 4-6 hours. ?? Your child should not do activities such as bike riding, swimming, exercising, running or any sports today. ?? Your child should not return to daycare or school today. They may return to daycare or school the following day. C. Diet ?? Keep meals small and light for the rest of the day. ?? If your child vomits after eating, they should not eat anything for the next hour. After an hour, your child can try clear liquids, such as Jell-O, juice, or water. If your child does not vomit, slowly advance diet to soft food and then to regular food. D. Pain Management ??? Please see Children's pain management handout for instructions. Thank you for choosing [facility]! documented in this encounter Medications at Time of Discharge acetaminophen (TYLENOL) 500 mg tablet Take 2 tablets (1,000 mg total) by mouth every 6 (six) hours for 3 days 24 tablet 01/01/2021 01/04/2021 ibuprofen (ADVIL,MOTRIN) 400 mg tablet Take 1.5 tablets (600 mg total) by mouth every 6 (six) hours for 3 days 18 tablet 01/01/2021 01/04/2021 escitalopram (LEXAPRO) 10 mg tablet Take 10 mg by mouth every morning 10/20/2020 07/20/2021 oxyCODONE (ROXICODONE) 5 mg immediate release tabletIndications :Pain Take 1 tablet (5 mg total) by mouth every 4 (four) hours as needed (severe pain) for up to 5 doses 5 tablet 01/01/2021 07/20/2021 Vyvanse 30 mg capsule TAKE 1 CAPSULE BY MOUTH EVERY DAY AT 8AM 10/20/2020 07/20/2021 documented as of this encounter Ordered Prescriptions Prescription Sig Dispense Quantity Refills Last Filled Start Date End Date oxyCODONE (ROXICODONE) 5 mg immediate release tabletIndications: Pain Take 1 tablet (5 mg total) by mouth every 4 (four) hours as needed (severe pain) for up to 5 doses 5 tablet 01/01/2021 ibuprofen (ADVIL,MOTRIN) 400 mg tablet Take 1.5 tablets (600 mg total) by mouth every 6 (six) hours for 3 days 18 tablet 01/01/2021 acetaminophen (TYLENOL) 500 mg tablet Take 2 tablets (1,000 mg total) by mouth every 6 (six) hours for 3 days 24 tablet 01/01/2021 1 documented in this encounter Discharge Disposition Disposition Code Departure Means Destination Discharge to home or self care documented in this encounter H&P Notes * Fortunato Hammond MD - 01/01/2021 5:09 PM CDT I have reviewed the H&P, examined the patient, and endorse the findings as written. Plan of Care : Based on the above findings, I consider Rashaad Rodney to be an acceptable risk for : Procedure(s): CHORDEE REPAIR Questions answered Consent signed Source Note - Carlton Calvo MD - 01/01/2021 3:03 [...] All questions answered. 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 POSTOPERATIVE DIAGNOSIS Same. PROCEDURES 1. Tunica albuginea plication to correct penile curvature. ANESTHETIC General and 0.5% bupivacaine dorsal penile nerve block. HISTORY Rashaad Rodney is a 15 y.o. male noted to have penile curvature. He has been circumcised. He has curvature to the left that he estimates at 45 degrees. The magnitude will almost certainly impact sexual intercourse. He presents today for management. PROCEDURE After anesthetic was administered, the patient was prepped and draped in standard fashion. A timeout was completed confirming the patient identifiers, as well as the scheduled surgical procedure. A dorsal penile nerve block was administered percutaneously using 10 mL of 0.5% bupivacaine. I placed a tourniquet at the base of the penis and an artificial erection was obtained using injectable saline. I used a goniometer and the curvature was midshaft and 20 degrees. I made a skin incision using the prior circumcision line. Dissection was carried down to the tunica albuginea and spongiosum. Parallel transverse incisions were made in the right lateral corporal body at the point of maximal curvature. Dissection was near full thickness. I placed three buried 2-0 Ethibond sutures. These were tied and repeat erection revealed no residual curvature. I reapproximated Johnson's fascia over the plication site using a running 3-0 Vicryl. The tourniquet was removed. The butterfly needle was removed. Hemostasis was obtained with electrocautery. Attention was placed towards skin closure. I closed the dartos layer with a running 3-0 Vicryl. I closed the skin with interrupted subcuticular 6-0 Vicryl and a running 5-0 fast. A Telfa and Coban wrap dressing was applied to the phallus. The anesthetic was reversed. The patient was then transferred to recovery room having tolerated the procedure with difficulty. I was present for the entire case. * Pre-Procedure Instructions - Radha Pope RN - 12/31/2020 9:30 AM CDT We are pleased that you and your doctor have chosen [facility] for this surgery. We hope that the following information will help make your visit a pleasant one. Any changes in health status from screening call: FAMILY AWARE VIA EUGENIO TO CALL IF STATUS CHANGES PRIOR TO DOS Times sent via eugenio Surgery Date: 01/01/2021 Surgery Time: 1550 Arrival Time: 1415 Solids Time: MN (solid food, milk products, formula) Clears Time: 1200 (water, clear apple juice, white soda or electrolyte solutions such as Gatorade or Pedialyte.) Nothing in mouth after Clears time Night before your surgery: ?? Good bath/shower, wash hair and brush teeth. Wear clean clothes after bath/shower. Day of surgery: We are located on the 6th floor of [facility]. Please take green Atrium elevators. Check in at the Registration Desk in the Same Day Surgery Waiting Area. Give medication as directed. ?? No makeup, no jewelry (including all body piercings) nail syriac and no metal in hair. ?? Dress in clean comfortable clothes. No contact lens or removable dental retainers. ?? We may require a urine sample of your child. No tampons, must wear pad only. ?? If you have a special item such as stuffed animal, pillow or blanket please bring with you. ?? If you use a BIPAP,CPAP machine or glucometer machine, please bring it with you. ?? Please bring insurance cards and photo ID for any adult with you. ?? Park in the Main Garage across from the main hospital. ?? Check in at the Registration Desk on the 6th Floor in the Perioperative Area When you arrive for the procedure: ?? You will be registered and taken back to the pre-op room. We limit visitors to 2 at a time with the patient. We ask that you not bring other children with you. ?? An IV may be started prior to going to sleep. ?? A head to toe cleansing with antibacterial wipes may be completed while you are still awake. Please call [phone] if you have questions, concerns or are delayed on day of surgery. documented in this encounter Plan of Treatment Not on file documented as of this encounter Procedures Procedure Name Priority Date/Time Associated Diagnosis Comments CHORDEE REPAIR 01/01/2021 4:50 PM CDT Chordee documented in this encounter Visit Diagnoses Not on filedocumented in this encounter Admitting Diagnoses Diagnosis Chordee Other specified disorder of penis documented in this encounter Administered Medications Inactive Administered Medications - up to 3 most recent administrations Medication Order MAR Action Action Date Dose Rate Site lidocaine 1% buffered injection 0.1 mL 0.1 mL, subcutaneous, As needed, other, IV insertion, Starting on Mary 01/01/21 at 1427, Pre-Op, Maximum daily dose 0.1 mL/kg Administer immediately prior to procedure. Given 01/01/2021 3:42 PM CDT 0.1 mL Other (Comment) documented in this encounter Discontinued Medications Medication Sig Discontinue Reason Start Date End Da te ibuprofen (ADVIL,MOTRIN) 600 mg tabletIndications:Pain Take 1 tablet (600 mg total) by mouth every 6 (six) hours as needed for pain Therapy completed 03/11/2019 12/25/2020 documented as of this encounter Active and Recently Administered Medications Times are shown in CDT. Scheduled Medication Order 12/30/2020 12/31/2020 01/01/2021 clindamycin (CLEOCIN) IV syringe (18 mg/mL in NS) 594 mg 594 mg (rounded from 600 mg), intravenous, at 33 mL/hr, Administer over 60 Minutes, Once, On Mary 01/01/21 at 1600, For 1 dose, Pre-Op, Maximum dose = 600 mg Infuse time minimum 60 minutes per Anesthesia. THIS ORDER IS FOR PREOPERATIVE USE ONLY. Administer 30 minutes before procedure., Indications: Prophylaxis, Surgical, penicillin and cephalosporin allergies 1600 (Due) Continuous Medication Order 12/30/2020 12/31/2020 01/01/2021 Lactated Ringer's (LR) infusion 100 mL/hr, intravenous, Continuous, Starting on Mary 01/01/21 at 1900, Phase I 1820 (Continued from OR - Provider: Goldie Perez, FLAKITA)1920 (Stopped - Provider: Goldie Perez, FLAKITA) PRN Medication Order 12/30/2020 12/31/2020 01/01/2021 acetaminophen (TYLENOL) tablet 1,000 mg 1,000 mg, oral, Once as needed, other, Please administer before ibuprofen, if co-ordered AND if last dose given 4 hours or greater, Starting on Mary 01/01/21 at 1823, For 6 hours, Phase I, Maximum dose = 650 mg bupivacaine (MARCAINE) 0.5 % (5 mg/mL) preservative free injection (CANCELED) As needed, Starting on Mary 01/01/21 at 1708, Intra-Op 1708 (Given - Provid er: Fortunato Hammond MD) HYDROmorphone (PF) (DILAUDID) injection 200 mcg 200 mcg, intravenous, Administer over 5 Minutes, Every 5 min PRN, other, may administer up to 2 doses for acute pain management, Starting on Mary 01/01/21 at 1823, For 6 hours, Phase I, Maximum dose = 0.4 mg, Indications: Pain lidocaine 1% buffered injection 0.1 mL 0.1 mL, subcutaneous, As needed, other, IV insertion, Starting on Mary 01/01/21 at 1427, Pre-Op, Maximum daily dose 0.1 mL/kg Administer immediately prior to procedure. 1542 (Given - Provid er: Shaista Patterson RN) oxyCODONE (ROXICODONE) tablet 5 mg 5 mg, oral, Once as needed, other, for non-acute pain only after treatment of pain with non-opioid pain medication, if co-ordered, Starting on Mary 01/01/21 at 1823, For 6 hours, Phase I, Maximum dose = 10 mg; may repeat in 2-4 hours as needed for continued ongoing pain., Indications: Pain documented in this encounter Orders Medications Ordered That Biju ht Not Have Been Administered Count Last Ordered Date First Ordered Date acetaminophen (TYLENOL) tablet 1,000 mg 1 0 01/01/2021 bupivacaine (MARCAINE) 0.5 % (5 mg/mL) preservative free injection 1 01/01/2021 clindamycin (CLEOCIN) IV syr brayden (18 mg/mL in NS) 594 mg 1 01/01/2021 HYDROmorphone (PF) (DILAUDID ) injection 200 mcg 1 01/01/2021 Lactated Ringer's (LR) infusion 1 oxyCODONE (ROXICODONE) tablet 5 mg 1 2020 CORE MEASURES Count Last Ordered Date First Ord ered Date REASON FOR NO VTE PROPHYLAXI S - HOSPITAL ADMISSION - MECHANICAL 1 01/01/2021 documented in this encounter Care Teams Aircraft Body Repairer Relationship Specialty Start Date End Date Tiff Frost MD [address] [place] [address] PCP - General Pediatrics 10/17/20 documented as of this encounter
--- OUTSIDE RECORDS SUMMARY | 2024-07-20 04:50 | XMS_ITS | Encounter Summary ---
Author Organization [facility] Address [address] [place] [address] Phone Care Team Providers Care Research Associate Name Role Phone Tiff Frost MD Primary Care Provider [phone] Encounter Details Date Type Department Care Team (Late st Contact Info) Description 07/20/2021 Telephone [facility] Surgery [facility] 2[address] [place] [address] [place] [address] Fortunato Hammond MD 1 [facility] [address] [place], [place] [id number] Social History Tobacco Use Types Packs/Day Years Used Date Smoking Tobacco: Never Sex and Gender Information Value Date Recorded Sex Assigned at Not on file 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 They will be going end of or Tuesday. Thanks Nissa FF INSPECTOR FF INSPECTOR documented in this encounter Plan of Treatment Scheduled Orders Name Type Priority Associated Diagnoses Orde r Schedule COVID-19 CORONAVIRUS RNA (OUTSIDE LABS) Nasopharyngeal Microbiology Routine Chordee Expected: 07/23/2021, Expires: 07/20/2022 documented as of this encounter Visit Diagnoses Diagnosis Chordee- Primary Other specified disorder of penis documented in this encounter Care Teams Research Associate Relationship Specialty Start Date End Date Tiff Frost MD [address] [place] [place] [address] PCP - General Pediatrics 10/17/20 documented as of this encounter
--- OUTSIDE RECORDS SUMMARY | 2024-07-20 04:50 | XMS_ITS | Encounter Summary ---
Author Organization [facility] Healthcare Address [address] [place] [address] Care Team Providers Care Conference Coordinator Name Role Phone Tiff Frost MD Primary Care Provider [phone] Encounter Details Date Type Department Care Team (Late st Contact Info) Description 07/29/2021 8:27 AM ELECTRICAL ELECTRONICS ENGINEER Anesthesia Event [facility] [place] [address] Kyra Garrett MD [address] [facility] [address] [place] [address] Bree Vergara NP 1 [facility] [place] [address] Anesthesia Record Procedure Summary Procedure Name Responsible Anesthesiologist Anesthesia Start Time Anesthesia Stop Time CHORDEE REPAIR- revision (Penis) Kyra Garrett MD 07/29/21 0827 07/29/21 1006 Events Date Time Event Comment 07/29/2021 0827 An Start 0830 In Room 0833 An Start Data 0835 An Induction The patient was reevaluated immediately before moderate or deep sedation use and before anesthesia induction. 0838 An LMA 0842 Anesthesia Ready 0853 Incision Start 0957 Out of Room 1006 Handoff to RN I completed my handoff [...] disposition at the time of handoff: PACU 1006 An Stop Meds Name Total lidocaine 1 % PF 40 mg dexamethasone 4 mg/ml 4 mg ondansetron PF 2 mg/mL 4 mg HYDROmorphone 0.2 mg/mL 200 mcg propofol 400 mg LR 0 mL * Agents Name N2O O2 N2O Air Sevoflurane Isoflurane Desflurane Inspired Sevoflurane * Blood No blood administrations on file. Lines, Drains, and Airways Type Details Placement Removal RETIRED Surgical Site 01/01/21; 1743; Pe nis; 07/03/24 (Retired LDA, 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 [employer] with LDA Utility); 1213 (Retired LDA, 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 [employer] with LDA Utility) 01/01/21 1743 by Priscilla Mosley RN 07/03/24 1213 by Discharge Provider, Automatic Peripheral IV Placement Date: 07/29/21; Catheter Size: 22 G; Orientation: Left; Location: Hand; Site Prep: Chlorhexidine; Technique: Anatomical landmarks; Insertion Attempts: 1; Patient Tolerance: Tolerated well; Removal Date: 07/29/21; Removal Time: 1150 07/29/21 0000 by Nicole Sullivan RN 07/29/21 1150 by Nicole Sullivan RN Supraglottic Airway Placement Date: 07/29/21; Placement Time: 0834 (created via procedure documentation); Mask Ventilation: 1; Size: 4; Insertion Attempts: 1; Comments: removed in OR not in place in PACU; Removal Date: 07/29/21; Removal Time: 0855 07/29/21 0834 by Jl Foote MD 07/29/21 0855 by Ana Ulloa RN RETIRED Surgical Site 07/29/21; 0858; Perineum; 07/03/24 (Retired LDA, 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 [employer] with LDA Utility); 1213 (Retired LDA, 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 [employer] with LDA Utility) 07/29/21 0858 by Sharron Caldwell RN 07/03/24 1213 by Discharge Provider, Automatic documented in this encounter Social History Tobacco Use Types Packs/Day Years Used Date Smoking Tobacco: Never Sex and Gender Information Value Date Recorded Sex Assigned at Not on file Legal Sex Male 4:15 AM ELECTRICAL ELECTRONICS ENGINEER Gender Identity Not on file Sexual Orientation Not on file documented as of this encounter OR Notes * Anesthesia Postprocedure Evaluation - Sera Quintanilla MD - 07/29/2021 10:31 AM CST Patient: Rashaad Rodney Procedure Summary Date: 07/29/21 Room / Location: [address] OPERATING ROOM Anesthesia Start: 826 Anesthesia Stop: 1005 Procedure: CHORDEE REPAIR- revision (N/A Penis) Diagnosis: Painful penile erection Chordee (Painful penile erection [N48.30]) (Chordee [N48.89]) Providers: Fortunato Hammond MD Responsible Provider: Kyra Garrett MD Anesthesia Type: general ASA Status: 1 Anesthesia Type: general Last vitals BP 114/72 (BP Location: Right arm, Patient Position: Lying) Pulse 86 Temp 36.3 ??C (97.3 ??F) (Temporal) Resp 18 SpO2 100% Anesthesia Post Evaluation Patient location during evaluation: PACU Patient participation: complete - patient participated Level of consciousness: fully awake Pain management: adequate Airway patency: patent Evidence of recall: no Cardiovascular status: hemodynamically stable Respiratory status: room air Hydration status: acceptable Pt is: normothermic Nausea/Vomiting status: none No complications documented. TRICAL ELECTRONICS ENGINEER * Anesthesia Procedure Notes - Jl Foote MD - 07/29/2021 9:02 AM ELECTRICAL ELECTRONICS ENGINEER Associated Order(s): Airway Airway Patient location: OR Urgency: elective Date/time: 07/29/2021 8:34 AM Indications for airway management: anesthesia Difficult airway: no Staff: Supervising provider: Kyra Garrett MD Placed by: Fellow: Jl Foote MD Emergent airway documentation: Risks and benefits discussed: yes Consent obtained: yes Consent given by: patient Airway prep: Preoxygenated: yes Mask difficulty assessment: 1 - vent by mask Spontaneous ventilation during airway: present Sedation level during airway: GA Final airway details: Final airway type: supraglottic airway Final supraglottic airway: classic SGA size: 4 Number of attempts: 1 TRICAL ELECTRONICS ENGINEER * Anesthesia Preprocedure Evaluation - Kyra Garrett MD - 07/29/2021 7:27 AM CST Images from the original note were not included. Anesthesia Evaluation Rashaad Rodney is a 16 y.o. male Procedure(s): CHORDEE REPAIR- reoperative Pre-Op Diagnosis Codes: * Painful penile erection [N48.30] * Chordee [N48.89] HISTORY HPI Rashaad Rodney is a 16 y.o. male with a history of ADD, asthma, Crohn's, and chordee who presentstoday for chordee repair Past Medical History Neurological Neurological system: negative Cardiovascular Cardiac system: negative Respiratory + Asthma/RAD (RAD no albuterol use in a long time) Medication use: PRN. Pertinent negatives: recent URI and sleep apnea (SALIMA) Gastrointestinal + GERD (at times, symptoms include hiccups) - does not use medication. Comments: constipation Renal / Renal/ system: negative Endocrine / Other Endocrine/Other system: negative Growth / Development + Development / behavior - attention deficit disorder. PAT Summary and Plans Additional comments: No prior GA . Patient Active Problem List Diagnosis ??? Chordee ??? Painful penile erection Past Medical History: Diagnosis Date ??? Abdominal pain 09/2020 hospitalized for 3 days, concern for apendicitis, did not require surgery ??? ADD (attention deficit disorder) ??? Allergic epi pen used after anaphylaxis ??? Asthma ??? Chordee ??? Constipation ??? COVID-19 Jun 2020, symptomatic, required albuterol Past Surgical History: Procedure Laterality Date ??? MYRINGOTOMY W/ TUBES x3 ??? TONSILLECTOMY/ADENOIDECTOMY at 3yo ??? UPPER GASTROINTESTINAL ENDOSCOPY 06/2021 with colonoscopy Allergies Allergen Reactions ??? Keflex [Cephalexin] Anaphylaxis and Rash ??? Penicillin G Hives Taking? Last Dose Start Date End Date Provider amitriptyline (ELAVIL) 10 mg tablet Past Week 07/07/21 -- ProviderTrenton MD ergocalciferol (VITAMIN D) 50,000 unit capsule 06/03/21 -- ProviderTrenton MD hydrocortisone (ANUSOL-HC) 2.5 % rectal cream 02/11/21 -- Trenton Osuna MD ondansetron ODT (ZOFRAN-ODT) 4 mg disintegrating tablet 06/04/21 -- Trenton Osuna MD Pentasa 500 mg CR capsule 07/28/2021 07/08/21 -- Trenton Osuna MD rOPINIRole (REQUIP) 0.5 mg tablet Past Month 04/13/21 -- Trenton Osuna MD Notes: Uses pron Vyvanse 40 mg capsule 07/28/2021 04/14/21 -- Trenton Osuna MD Current Facility-Administered Medications: ??? lidocaine 1% buffered injection 0.1 mL, 0.1 mL, intradermal, Once PRN ??? sodium chloride 0.9% flush 0.5-10 mL, 0.5-10 mL, intra-catheter, Q8H ??? sodium chloride 0.9% flush 0.5-10 mL, 0.5-10 mL, intra-catheter, PRN Social History Tobacco Use Smoking Status Never Smoker Smokeless Tobacco Not on file Substance and Sexual Activity Alcohol Use Not on file Substance and Sexual Activity Drug Use Not on file Family History Problem Relation Age of Onset ??? Urolithiasis Father ??? Diabetes Mother PAT Physical Exam Airway Exam: Mallampati: II Cervical ROM: FROM TM distance: normal Cardiovascular Exam: Rate: regular Pulmonary Exam: LCTA EENT Exam: trachea midline Dental Exam: Braces Skin Exam: Skin is warm and dry. Capillary refill is < 3 seconds. Abdominal exam: Abdomen is soft. Current state: Patient's current state is cooperative. Additional comments: GA plan and risks reviewed. Plan: IV induction, airway, recovery. Vitals: 07/29/21 0700 BP: 126/91 Pulse: 86 Resp: 12 Temp: 36.4 ??C (97.5 ??F) SpO2: 97% PT: No results found for requested labs [...] and allergies reviewed. Attestation: This PAT evaluation 07/29/2021. Airway Exam: Mallampati: I Cervical ROM: FROM TM distance: normal Cardiovascular Exam: Rate: regular Rhythm: regular Negative for Murmur Pulmonary Exam: LCTA, bilat EENT Exam: trachea midline Dental Exam: Appears intact and braces Skin Exam: Skin is warm and dry. Abdominal Exam: Abdomen is soft. Current state: Patient's current state is cooperative and interactive. Anesthesia Plan ASA 1 My patient is approved for the Anesthesia Controlled Medication protocol when under care of a LEATHER SEASONER Planned anesthesia: General Team communication plan: LMA Induction: Induction: intravenous. Postoperative Plan: Postoperative administration opioids intended. No postoperative mechanical ventilation intended. Patient's planned disposition post procedure is Outpatient. Informed Consent: Anesthesia plan and risks discussed with legal guardian. Consent and Attending signature: I and/or my designee have discussed the anesthesia plan, benefits, possible alternatives, parental presence at time of induction (if indicated), and clinically relevant risks that may include dental injury, unintentional awareness, and/or other complications. The patient and/or parent/legal guardian understand, and agree to proceed. All questions answered. TRICAL ELECTRONICS ENGINEER TRICAL ELECTRONICS ENGINEER TRICAL ELECTRONICS ENGINEER documented in this encounter Plan of Treatment Not on file documented as of this encounter Procedures Procedure Name Priority Date/Time Associated Diagnosis Comments ANESTHESIA INTUBATION Routine 07/29/2021 8:34 AM ELECTRICAL ELECTRONICS ENGINEER documented in this encounter Results * Airway (07/29/2021 8:34 AM ELECTRICAL ELECTRONICS ENGINEER) Narrative Jl Foote MD - 07/29/2021 8:34 AM ELECTRICAL ELECTRONICS ENGINEER Jl Foote MD ? 07/29/2021 ??9:03 AM Airway Patient location: OR Urgency: elective Date/time: 07/29/2021 8:34 AM Indications for airway management: anesthesia Difficult airway: no Staff: Supervising provider: Kyra Garrett MD Placed by: Fellow: Jl Foote MD Emergent airway documentation: Risks and benefits discussed: yes Consent obtained: yes Consent given by: patient Airway prep: Preoxygenated: yes Mask difficulty assessment: 1 - vent by mask Spontaneous ventilation during airway: present Sedation level during airway: GA Final airway details: Final airway type: supraglottic airway Final supraglottic airway: classic SGA size: 4 Number of attempts: 1 Jl Foote MD ANESTHESIA ORDERABLES Final Result documented in this encounter Visit Diagnoses Not on filedocumented in this encounter Administered Medications Inactive Administered Medications - up to 3 most recent administrations Medication Order MAR Action Action Date Dose Rate Site dexAMETHasone (DECADRON) 4 mg/mL injection intravenous, Administer over 30 Minutes, As needed, Starting on Tue07/29/21 at 0848, Anesthesia Intra-op Given 07/29/2021 8:48 AM ELECTRICAL ELECTRONICS ENGINEER 4 mg HYDROmorphone (PF) (DILAUDID) injection intravenous, Administer over 5 Minutes, As needed, Starting on Tue07/29/21 at 0835, Anesthesia Intra-op Given 07/29/2021 8:35 AM ELECTRICAL ELECTRONICS ENGINEER 200 mcg Lactated Ringer's (LR) infusion intravenous, Continuous PRN, Starting on Tue07/29/21 at 0835, Anesthesia Intra-op New Bag 07/29/2021 8:35 AM ELECTRICAL ELECTRONICS ENGINEER lidocaine PF (XYLOCAINE) 10 mg/mL (1 %) preservative free injection intravenous, As needed, Starting on Tue07/29/21 at 0835, Anesthesia Intra-op Given 07/29/2021 8:35 AM ELECTRICAL ELECTRONICS ENGINEER 40 mg ondansetron (ZOFRAN) injection intravenous, Administer over 15 Minutes, As needed, Starting on Tue07/29/21 at 0937, Anesthesia Intra-op Given 07/29/2021 9:37 AM ELECTRICAL ELECTRONICS ENGINEER 4 mg propofoL (DIPRIVAN) 10 mg/mL IV intravenous, As needed, Starting on Tue07/29/21 at 0835, Anesthesia Intra-op Given 07/29/2021 8:35 AM ELECTRICAL ELECTRONICS ENGINEER 400 mg documented in this encounter Care Teams Conference Coordinator Relationship Specialty Start Date End Date Tiff Frost MD [address] [place] [address] PCP - General Pediatrics 10/17/20 documented as of this encounter
--- OUTSIDE RECORDS SUMMARY | 2024-07-20 04:50 | XMS_ITS | Encounter Summary ---
Author Organization [facility] Address [address] [place] [address] Phone Care Team Providers Care Restaurant Line Cook Name Role Phone Tiff Frost MD Primary Care Provider [phone] Encounter Details Date Type Department Care Team (Late st Contact Info) Description 08/31/2021 Telephone [facility] [[email or web address] 2nd [place] [address] [place] [address] Fortunato Hammond MD 1 [facility] [place], [place] [id number] Social History Tobacco Use Types Packs/Day Years Used Date Smoking Tobacco: Never Sex and Gender Information Value Date Recorded Sex Assigned at Not on file Legal Sex Male 4:15 AM RECORDIST CHIEF Gender Identity Not on file Sexual Orientation Not on file documented as of this encounter Miscellaneous Notes * Telephone Encounter - Fortunato Hammond MD - 08/31/2021 4:15 PM RECORDIST CHIEF Rashaad says he developed a large hematoma after procedure late July Swelling nearly resolved Still feels some induration at base He thinks there may be some hinging of the phallus at that point Reassured him that new sutures at base are absorbable (6-8 weeks to dissolve) Unlikely he has ED causing hinging. Not currently sexually active Will observe RDIST CHIEF documented in this encounter Plan of Treatment Not on file documented as of this encounter Visit Diagnoses Not on filedocumented in this encounter Care Teams Restaurant Line Cook Relationship Specialty Start Date End Date Tiff Frost MD [address] [place] [address] PCP - General Pediatrics 10/17/20 documented as of this encounter
--- OUTSIDE RECORDS SUMMARY | 2024-07-20 04:50 | XMS_ITS | Encounter Summary ---
Author Organization [facility] Address [address] [place] [address] Phone Care Team Providers Care Social Worker Psychiatric Name Role Phone Tiff Frost MD Primary Care Provider [phone] Reason for Visit * Reason Comments Return Patient pain * Consultation (Routine) - Closed Specialty Diagnoses / Procedures Referred By Contshilpi martin Referred To Contact Pediatric Urology Diagnoses [place] Tiff Frost MD [address] [place] [address] Phone: tel: fax: Fortunato Hammond MD 1 [facility] [address] [place] [address] Phone: tel: fax: Referral ID Status Reason Start Date Expiration Date V isits Requested Visits Authorized [id number] Closed Specialty Services Required 10/17/2020 11/16/2021 99 99 Encounter Details Date Type Department Care Team (Late st Contact Info) Description 05/01/2021 3:15 PM CDT Office Visit [facility] Surgery [facility] 2[address] [place] [address] [place] [address] Fortunato Hammond MD 1 [facility] [address] [place] [address] Painful penile erection (Primary Dx) Social History Tobacco Use Types Packs/Day Years Used Date Smoking Tobacco: Never Sex and Gender Information Value Date Recorded Sex Assigned at Not on file Legal Sex Male 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 Gender Identity Not on file Sexual Orientation Not on file documented as of this encounter Last Filed Vital Signs Vital Sign Reading Time Taken Comments Blood Pressure - - Pulse - - Temperature - - Respiratory Rate - - Oxygen Saturation - - Inhaled Oxygen Concentration - - Weight 67.6 kg (149 lb 0.5 oz) 05/01/2021 2:46 P M CDT Height 180 cm (5' 10.87 ) 05/01/2021 2:46 PM CDT Body Mass Index 20.86 05/01/2021 2:46 PM CDT Body Mass Index Percentile 35.38% 05/01/2021 2:4 6 PM CDT Growth Chart: [facility] (Boys, 2-2 0 Years) documented in this encounter Progress Notes * Fortunato Hammond MD - 05/01/2021 3:15 PM CDT Images from the original note were not included. Chief Complaint Patient presents with ??? Return Patient pain HPI: Rashaad Rodney is a 15 y.o. 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 He says that there is minimal residual ventral curvature. Patient states since surgery he has experienced localized penile pain at the base. He reports he can feelthe suture line. Pain is worse with erections. He thinks that the plication site balloons out when he has an erection. He denies pain while flaccid. The pain varies in severity. He denies dysuria, hematuria, hematospermia, ecchymosis, or recent fevers. Review of systems Please refer to the Pediatric Urology Child history form scanned into the media section of the EMR. Physical Exam Vitals: 05/01/21 1446 Weight: 67.6 kg (149 lb 0.5 oz) Height: 180 cm (5' 10.87 ) Constitutional: no acute distress/healthy appearing Neuro: alert, appropriate Skin: no rashes : Penis: circumcised, normal in appearance. Orthotopic meatus, the Ethibond plication sutures arepalpable at the base dorsally. No tenderness. No palpable granuloma Meatus: normal Scrotum/Testes: Normal looking to inspection & palpation. Bilaterally descended testes. No hernia or hydrocele. Assessment and Plan: It was a pleasure seeing Rashaad Rodney in clinic today. We reviewed the history and findings with Rashaad and his mother. The discomfort is clearly related to the prior surgery/plication sutures but there is no palpable inflammation/irritation to explain the presistence. It seems like the discomfort is decreasing so I think this is best observed. They will call with continued/progressive concerns. documented in this encounter Plan of Treatment Not on file documented as of this encounter Visit Diagnoses Diagnosis Painful penile erection- Primary documented in this encounter Historical Medications * This list may reflect changes made after this encounter. Vyvanse 40 mg capsule TAKE ONE CAPSULE BY MOUTH EVERY DAY AT 8 AM 04/14/2021 rOPINIRole (REQUIP) 0.5 mg tablet 04/13/2021 hydrocortisone (ANUSOL-HC) 2.5 % rectal cream APPLY TOPICALLY TO RECTAL AREA 2 TO 4 TIMES DAILY FOR 5 DAYS 02/11/2021 traZODone (DESYREL) 100 mg tablet 04/13/2021 1 predniSONE (DELTASONE) 20 mg tablet TAKE 1 TABLET BY MOUTH ONCE DAILY WITH FOOD. AVOID SUN EXPOSURE 04/15/2021 1 busPIRone (BUSPAR) 5 mg tablet Take 5 mg by mouth 2 (two) times a day 02/11/2021 1 buPROPion XL (WELLBUTRIN XL) 150 mg 24 hr tablet TAKE 1 TABLET BY MOUTH ONCE DAILY AT 8AM 04/13/2021 1 added in this encounter Care Teams Social Worker Psychiatric Relationship Specialty Start Date End Date Tiff Frost MD [address] [place] [address] PCP - General Pediatrics 10/17/20 documented as of this encounter
--- OUTSIDE RECORDS SUMMARY | 2024-07-20 04:50 | XMS_ITS | Encounter Summary ---
Author Organization [facility] Healthcare Address [address] [place] [address] Care Team Providers Care Commercial Collector Name Role Phone Tiff Frost MD Primary Care Provider [phone] Encounter Details Date Type Department Care Team (Late st Contact Info) Description 01/01/2021 3:50 PM CDT - 01/01/2021 5:20 PM CDT Surgery [facility] [place] [address] Fortunato Hammond MD [address] [place] [address] [address] [place] [address] CHORDEE REPAIR Surgery Details Date/Time Status Location OR Service Patient Class Case Cl ass Case Type Trauma Case? 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 Gender Identity Not on file Sexual Orientation Not on file documented as of this encounter Last Filed Vital Signs Vital Sign Reading Time Taken Comments Blood Pressure 130/96 01/01/2021 2:20 PM CDT Pulse 86 01/01/2021 2:20 PM CDT Temperature 36.8 ??C (98.2 ??F) 01/01/2021 4:45 PM CD T Respiratory Rate 16 01/01/2021 2:20 PM CDT Oxygen Saturation 98% 01/01/2021 2:20 PM CDT Inhaled Oxygen Concentration - - Weight 67 kg (147 lb 11.3 oz) 01/01/2021 2:20 PM CDT Height 184 cm (6' 0.44 ) 01/01/2021 2:20 PM CDT Body Mass Index 19.79 01/01/2021 2:20 PM CDT Body Mass Index Percentile 22.82% 01/01/2021 7:2 0 PM CDT Growth Chart: [facility] (Boys, 2-2 0 Years) documented in this encounter Discharge Instructions * [...] Tuesday, 8 AM to 4:30 PM, call [phone] and ask for a member of your doctor's team. After 4:30 PM during the week, on weekends and holidays, call [phone] and ask to have the Urology Aircraft Parts Assembler Physician paged for you. Discharge Instructions for [...] and weekends) ask for the Anesthesia Physician general operations manager ?? If your child is vomiting more [...] handout for instructions. Thank you for choosing [facility]! documented in this encounter Medications at Time [...] mg tablet 12/31/2020 10/20/20 -- ProviderTrenton MD Vsapphiree 30 mg capsule Past Month 10/20/20 -- [...] SERVICE: 01/01/2021 DATE OF : 2005 CSN: [id number] SURGEON: Fortunato Hammond MD CO-SURGEON: GOLF COURSE STARTER: Ya Dobbins MD PREOPERATIVE DIAGNOSES Congenital penile [...] that you and your doctor have chosen [facility] for this surgery. We hope that the [...] are located on the 6th floor of [facility]. Please take green Atrium elevators. Check in at the Registration Desk in the Same Day Surgery Waiting Area. Give medication as directed. ?? No makeup, no jewelry (including all body piercings) nail malay and no metal in hair. ?? Dress [...] while you are still awake. Please call [phone] if you have questions, concerns or are delayed on day of surgery. documented in this encounter Plan of Treatment Not on file documented as of this encounter Procedures Procedure Name Priority Date/Time Associated Diagnosis Comments CHORDEE REPAIR 01/01/2021 4:50 PM CDT Chordee documented in this encounter Visit Diagnoses Diagnosis Chordee Other specified disorder of penis documented in this encounter Admitting Diagnoses Diagnosis Chordee Other specified disorder of penis documented in this encounter Administered Medications Inactive Administered Medications - up to 3 most recent administrations Medication Order MAR Action Action Date Dose Rate Site bupivacaine (MARCAINE) 0.5 % (5 mg/mL) preservative free injection As needed, Starting on Mary 01/01/21 at 1708, Intra-Op Given 01/01/2021 5:08 PM CDT 10 mL Surgical Site lidocaine 1% buffered injection 0.1 mL [...] 1820 (Continued from OR - Provider: Goldie Perez RN)1920 (Stopped - Provider: Goldie Perez RN) PRN Medication Order 12/30/2020 12/31/2020 01/01/2021 acetaminophen [...] (TYLENOL) tablet 1,000 mg 1 0 01/01/2021 clindamycin (CLEOCIN) IV syr brayden (18 [...] 01/01/2021 documented in this encounter Care Teams Commercial Collector Relationship Specialty Start Date End Date Tiff Frost MD [address] [place] [address] PCP - General Pediatrics 10/17/20 documented as of this encounter
--- OUTSIDE RECORDS SUMMARY | 2024-07-20 04:50 | XMS_ITS | Referral Summary ---
Author Organization [facility] ospital Address [address] [place] [address] Care Team Providers Care Office Services Assistant Name Role Phone Tiff Frost MD Primary Care Provider [phone] Allergies Active Allergy Reactions Criticality Noted Date Comments Cephalexin Anaphylaxis,Rash High 03/10/2019 Penicillin G Hives Medium 03/10/2019 Medications hydrocortisone (ANUSOL-HC) 2.5 % rectal cream APPLY TOPICALLY TO RECTAL AREA 2 TO 4 TIMES DAILY FOR 5 DAYS 1 Active rOPINIRole (REQUIP) 0.5 mg tablet 1 Active Vyvanse 40 mg capsule TAKE ONE CAPSULE BY MOUTH EVERY DAY AT 8 AM 1 Active amitriptyline (ELAVIL) 10 mg tablet Take 10 mg by mouth nightly at bedtime. 1 Active ergocalciferol (VITAMIN D) 50,000 unit capsule TAKE 1 CAPSULE BY MOUTH WEEKLY FOR 8 WEEKS 1 Active Pentasa 500 mg CR capsule TAKE 4 CAPSULES BY MOUTH TWICE DAILY 1 Active ondansetron ODT (ZOFRAN-ODT) 4 mg disintegrating tablet TAKE 1 TABLET BY MOUTH THREE TIMES DAILY NEEDED FOR NAUSEA AND VOMITING 1 Active acetaminophen (TYLENOL) 500 mg tablet Take 1 tablet (500 mg total) by mouth every 6 (six) hours as needed for pain 60 tablet 1 Active ibuprofen (ADVIL,MOTRIN) 600 mg tablet Take 1 tablet (600 mg total) by mouth every 6 (six) hours as needed for pain 60 tablet 1 Active oxyCODONE (ROXICODONE) 5 mg immediate release tabletIndications: Pain Take 1 tablet (5 mg total) by mouth every 4 (four) hours as needed for pain 10 tablet 1 Active Active Problems Problem Noted Date Diagnosed Date 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 Social History Tobacco Use Types Packs/Day Years Used Date Smoking Tobacco: Never Sex and Gender Information Value Date Recorded Sex Assigned at Not on file 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 Gender Identity Not on file Sexual Orientation Not on file Last Filed Vital Signs Vital Sign Reading Time Taken Comments Blood Pressure 122/79 07/29/2021 11:30 AM SAND CUTTING MACHINE OPERATOR Pulse 96 07/29/2021 11:30 AM SAND CUTTING MACHINE OPERATOR Temperature 36.9 ??C (98.4 ??F) 07/29/2021 11:[address] Respiratory Rate 20 07/29/2021 11:30 AM SAND CUTTING MACHINE OPERATOR Oxygen Saturation 96% 07/29/2021 11:30 AM SAND CUTTING MACHINE OPERATOR Inhaled Oxygen Concentration - - Weight 63 kg (138 lb 14.2 oz) 07/29/2021 7:00 AM SAND CUTTING MACHINE OPERATOR Height 178 cm (5' 10.08 ) 07/29/2021 7:00 AM SAND CUTTING MACHINE OPERATOR Body Mass Index 19.88 07/29/2021 7:00 AM SAND CUTTING MACHINE OPERATOR Plan of Treatment Not on file Insurance [place] [address] [employer] [facility] CLAIM[facility] CLAIM[facility] [facility] CLAIMS [employer] [facility] CLAIMS Advance Directives For more information, please contact: [phone] * Full Code (Latest Code Status on File) Date Activated Date Inactivated Comments 07/29/2021 7:18 AM 07/29/2021 4:01 PM * Full Code Date Activated Date Inactivated Comments 01/01/2021 2:27 PM 01/02/2021 12:08 AM Care Teams Office Services Assistant Relationship Specialty Start Date End Date Tiff Frost MD [address] [place] [address] PCP - General Pediatrics 10/17/20
--- OUTSIDE RECORDS SUMMARY | 2024-07-20 04:50 | XMS_ITS | Encounter Summary ---
Author Organization [facility] Address [address] [place] [address] Care Team Providers Care Packaging Assembler Name Role Phone Tiff Frost MD Primary Care Provider Encounter Details Date Type Department Care Team (Late st Contact Info) Description 11/20/2020 Orders Only [facility] Testing Site - [place], [place] [address] [place] [id number] Fortunato Hammond MD [address] [place] [address] [address] [place] [address] Pre-procedure lab exam (Primary Dx) Social History Tobacco Use Types Packs/Day Years Used Date Smoking Tobacco: Never Sex and Gender Information Value Date Recorded Sex Assigned at Not on file 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 Date of Px/chemo/treatment/placement/transfer 01/01/2021 ?? Testing site patient will be sent to: [place], [place] ?? (Optional) Patient requires saliva test due to: ? Testing: COVID-RNA ?? Is this the first COVID-19 test for this patient? Unknown ?? Does the patient currently work in a healthcare facility with direct patient contact? No ?? Is the patient a resident of a congregate care or living setting? No ?? Is the patient ? No ?? Date testing requested: 12/27/2020 ?? Testing: Coronavirus RNA ?? Please select the performing region: [facility] ?? Referral Notes documented in this encounter Plan of Treatment Not on file documented as of this encounter Results * COVID-19 Coronavirus RNA Nasopharyngeal (12/30/2020 12:10 PM CDT) COVID-19 RNA Not Detected [facility] ([facility]) Comment: Testing performed as a component of ??a specimen pool. ??Negative results should be treated as presumptive and, if inconsistent with clinical signs and symptoms or necessary for patient management, pooled samples should be tested individually. Negative results do not preclude SARS-CoV-2 infection and must not be used as the sole basis for patient management decisions. Negative results must be considered in the context of a patient? s recent exposures, history, presence of clinical signs and symptoms consistent with COVID-19. Interpretive Data Synonyms for this test include: PCR and NAAT . ??Testing performed by the [facility]. The 2019-Novel Coronavirus Assay (COVID-19) Real Time RT-PCR assay is for in vitro diagnostic use under FDA emergency use authorization only. A negative RT-PCR result does not preclude infection with COVID-19 and should not be used as the sole basis for treatment or other patient management decisions. Additional sample types have been validated according to CLIA regulations. ?? Current Interpretive Data was last revised on September 04, 2020. First COVID-19 test? Unknown [facility] ([place]) Comment:Testing performed by : [facility], [address] [facility] [place]., [address] Employeed in healthcare? No [facility] ([facility]) Comment:Testing performed by : [facility], [address] [place]., [address] status? No [facility] ([facility]) Comment:Testing performed by : [facility], [address] [facility] [place] [address] Group care resident? No [facility] ([facility]) Comment:Testing performed by : [facility], [address] [place]., [address] Hospitalized? Unknown [facility] ([facility]) Comment:Testing performed by : [facility], [address] [place]., [address] Is patient in ICU? Unknown [facility] ([facility]) Comment:Testing performed by : [facility], [address] [facility], [address] Symptomatic as defined by CDC? No [facility] ([facility]) Comment:Testing performed by : [facility], [address] [facility], [address] Nasopharyngeal 12/30/2020 12 :10 PM CDT 12/30/2020 8:24 PM CDT Narrative [facility] ([facility]) - 12/31/2020 5:29 AM CDT What is the reason for testing?->Screening prior to scheduled procedure or surgery us Fortunato Hammond MD LAB MICROBIOLOGY - GENERAL ORDERABLES Final Result [facility] ([place]) 1 [facility] Department [place] [address] documented in this encounter Visit Diagnoses Diagnosis Pre-procedure lab exam- Primary Pre-procedural laboratory examination Pre-procedure lab exam Pre-procedural laboratory examination documented in this encounter Care Teams Packaging Assembler Relationship Specialty Start Date End Date Tiff Frost MD [address] [place] [address] PCP - General Pediatrics 10/17/20 documented as of this encounter
--- OUTSIDE RECORDS SUMMARY | 2024-07-20 04:50 | XMS_ITS | Encounter Summary ---
Author Organization [facility] Healthcare Address [address] [place] [address] Care Team Providers Care Whip Sawyer Name Role Phone Suhas Collins MD Primary Care Provider [phone] Encounter Details Date Type Department Care Team (Late st Contact Info) Description 03/10/2019 10:55 PM CDT - 03/10/2019 11:14 PM CDT Hospital Encounter [facility] [place] [address] Melody Segura MD [address] [facility] [address] [place] [address] Discharge Disposition: Discharge to home or self care Social History Tobacco Use Types Packs/Day Years Used Date Smoking Tobacco: Never Assessed Sex and Gender Information Value Date Recorded Sex Assigned at Not on file 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 Gender Identity Not on file Sexual Orientation Not on file documented as of this encounter Medications at Time of Discharge ibuprofen (ADVIL,MOTRIN) 600 mg tabletIndications :Pain Take 1 tablet (600 mg total) by mouth every 6 (six) hours as needed for pain 30 tablet 03/11/2019 12/25/2020 documented as of this encounter Discharge Disposition Disposition Code Departure Means Destination Discharge to home or self care documented in this encounter Plan of Treatment Not on file documented as of this encounter Procedures Procedure Name Priority Date/Time Associated Diagnosis Comments XR SHOULDER RIGHT 2 OR MORE VIEWS ED 03/10/2019 11:30 PM CDT documented in this encounter Results * XR Shoulder Right 2+ views (03/10/2019 [...] sult documented in this encounter Visit Diagnoses Not on filedocumented in this encounter Care Teams Whip Sawyer Relationship Specialty Start Date End Date Suhas Collins MD [address] [place] [address] PCP - General 03/10/19 10/16/20 documented as of this encounter
--- OUTSIDE RECORDS SUMMARY | 2024-07-20 04:50 | XMS_ITS | Encounter Summary ---
Author Organization [facility] Address [address] [place] [address] Phone Care Team Providers Care Delinquent Tax Collector Assistant Name Role Phone Tiff Frost MD Primary Care Provider [phone] Encounter Details Date Type Department Care Team (Late st Contact Info) Description 04/07/2021 Telephone [facility] ([facility]) - [facility] Urology [address] [facility] 11th [place] [address] [place] [address] Zach House MD [address] [facility] [address] [place] [address] Social History Tobacco Use Types Packs/Day Years Used Date Smoking Tobacco: Never Sex and Gender Information Value Date Recorded Sex Assigned at Not on file 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 He has pain with erections.No acute pain Denies any fever, chills, nausea vomiting or drainage from wound. Can we set him up with a post op visit with Dr. Hammond or a Peds Uro CORN GRINDER? Zach Villanueva documented in this encounter Plan of Treatment Not on file documented as of this encounter Visit Diagnoses Not on filedocumented in this encounter Care Teams Delinquent Tax Collector Assistant Relationship Specialty Start Date End Date Tiff Frost MD [address] [place] [address] PCP - General Pediatrics 10/17/20 documented as of this encounter
--- OUTSIDE RECORDS SUMMARY | 2024-07-20 04:50 | XMS_ITS | Encounter Summary ---
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[employer] Gender Identity Not on file Sexual Orientation Not on file documented as of this encounter Plan of Treatment Not on file documented as of this encounter Procedures Procedure Name Priority Date/Time Associated Diagnosis Comments T-SPOT.TB Routine 10/31/2023 3:06 PM CDT Pre-employment health screening examination documented in this encounter Results * T-SPOT.TB Blood (10/31/2023 3:06 PM CDT) [facility] T-SPOT.TB Negative SeeBelow Comment: Normal Value: [...] ([facility]) T-SPOT.TB Panel B Spot Count 0 [facility] ([facility]) T-SPOT.TB Negative Control Passed [facility] ([facility]) T-SPOT.TB Positive Control [facility]ed [facility] Comment: Test Performed at: [employer] [facility] [address] [place] [address] ??[phone] ? JENNIFER MONTIEL,PHD Blood 10/31/2023 3:06 PM CDT 10/31/2023 3:16 PM CDT Narrative [facility] - 11/02/2023 3:53 PM CDT Bill to [facility] [employer] - 1520 Patient is employed by/enrolled at:->[facility] [employer] Sandip Guerra MD LAB MICROBIOLOGY - GENERAL OR DERABLES Final Result [facility] ([place]) 1 [facility] Department [place] [address] documented in this encounter Visit Diagnoses Diagnosis Pre-employment health screening examination Health examination of defined subpopulation documented in this encounter Care Teams Waist Presser Relationship Specialty Start Date End Date Tiff Frost MD [address] [place] [address] PCP - General Pediatrics 10/17/20 documented as of this encounter
--- OUTSIDE RECORDS SUMMARY | 2024-07-20 04:50 | XMS_ITS | Encounter Summary ---
Author Organization [facility] Healthcare Address [address] [place] [address] Care Team Providers Care Paint Mixer Hand Name Role Phone Tiff Frost MD Primary Care Provider [phone] Encounter Details Date Type Department Care Team (Late st Contact Info) Description 07/29/2021 6:56 AM SUPERVISOR FUSING ROOM - 07/29/2021 11:55 AM SUPERVISOR FUSING ROOM Hospital Encounter [facility] [place] [address] [place] [address] Fortunato Hammond MD [address] [facility] [address] [place] [address] Discharge Disposition: Discharge to home or self care Social History Tobacco Use Types Packs/Day Years Used Date Smoking Tobacco: Never Sex and Gender Information Value Date Recorded Sex Assigned at Not on file Legal Sex Male 4:15 AM SUPERVISOR FUSING ROOM Gender Identity Not on file Sexual Orientation Not on file documented as of this encounter Last Filed Vital Signs Vital Sign Reading Time Taken Comments Blood Pressure 122/79 07/29/2021 11:30 AM SUPERVISOR FUSING ROOM Pulse 96 07/29/2021 11:30 AM SUPERVISOR FUSING ROOM Temperature 36.9 ??C (98.4 ??F) 07/29/2021 1 1:30 AM SUPERVISOR FUSING ROOM Respiratory Rate 20 07/29/2021 11:3 0 AM SUPERVISOR FUSING ROOM Oxygen Saturation 96% 07/29/2021 11: 30 AM SUPERVISOR FUSING ROOM Inhaled Oxygen Concentration - - Weight 63 kg (138 lb 14.2 oz) 07/29/2021 7:00 AM SUPERVISOR FUSING ROOM Height 178 cm (5' 10.08 ) 07/29/2021 7:00 AM SUPERVISOR FUSING ROOM Body Mass Index 19.88 07/29/2021 7:00 AM SUPERVISOR FUSING ROOM Body Mass Index Percentile 19.64% 07/29/2021 7:0 0 AM SUPERVISOR FUSING ROOM Growth Chart: [facility] (Boys, 2-2 0 Years) documented in this encounter Discharge Diagnoses Diagnosis Other postprocedural complications and disorders of genitourinary system - OTHER POSTPROCEDURAL COMPLICATIONS AND DISORDERS OF GENITOURINARY SYSTEM Priapism, unspecified - PRIAPISM, UNSPECIFIED Curvature of penis (lateral) - CURVATURE OF PENIS (LATERAL) Other surgical procedures as the cause of abnormal reaction of the patient, or of later complication, without mention of misadventure at the time of the procedure - OTHER SURGICAL PROCEDURES THE CAUSE OF ABNORMAL REACTION OF THE PATIENT, OR OF LATER COMPLICATION Unspecified place or not applicable - UNSPECIFIED PLACE OR NOT APPLICABLE Activity, unspecified - ACTIVITY, UNSPECIFIED Unspecified external cause status - UNSPECIFIED EXTERNAL CAUSE STATUS Other specified behavioral and emotional disorders with onset usually occurring in childhood and adolescence - OTHER SPECIFIED BEHAVIORAL AND EMOTIONAL DISORDERS WITH ONSET USUALLY OCCURRING IN CHILDHOOD AND ADO Crohn's disease, unspecified, without complications (HCC) - CROHN'S DISEASE, UNSPECIFIED, WITHOUT COMPLICATIONS Unspecified asthma, uncomplicated - UNSPECIFIED ASTHMA, UNCOMPLICATED Other senior living (current) drug therapy - OTHER RESIDENTIAL (CURRENT) DRUG THERAPY terminal supervisor (current) use of non-steroidal anti-inflammatories (nsaid) - WHOLESALE AGRONOMIST (CURRENT) USE OF NON-STEROIDAL ANTI-INFLAMMATORIES (NSAID) Allergy status to penicillin - ALLERGY STATUS TO PENICILLIN Allergy status to other antibiotic agents - ALLERGY STATUS TO OTHER ANTIBIOTIC AGENTS documented in this encounter Discharge Instructions * Discharge Instructions* Ana Troncoso RN - 07/29/2021 10:12 AM SUPERVISOR FUSING ROOM Medicines: - Tylenol and Ibuprofen scheduled for the next 72 hours - Oxycodone as needed for severe pain Wound: - Remove the dressing in 24 hours if it has not fallen off by then. - Incision is closed with stitches that will dissolve over 2 weeks. - Sponge bathing is OK to start tomorrow. You can allow water to run over the incisions. Activity: As tolerated. Diet: Encourage liquids. Keep well hydrated. Resume usual diet. Contact your child's healthcare provider if: ?? Your child has a fever, ?? Your child's incision wound is red, swollen, or draining pus. ?? Your child has trouble urinating. ?? Your child has nausea or is vomiting. Follow up: No scheduled follow up needed. Call the urology office with issuesat [phone]. Tuesday through Tuesday, 8 AM to 4:30 PM, call [phone] and ask for a member of your doctor's team. After 4:30 PM during the week, on weekends and holidays, call [phone] and ask to have the Urology Rib Builder Physician paged for you. Discharge Instructions for Children Receiving Anesthesia Although your child is now awake and ready to go home, some of the side effects of anesthesia may last for several hours. If you have any concerns, please use the following contact numbers: Emergencies Call [phone] ?? If your child is having a hard time breathing ?? Unable to speak or cry because of difficulty breathing ?? Lips or fingernails are turning blue or white ?? You are unable to wake your child Non-Emergencies Call Same Day Surgery (during regular business hours) Call (after 4pm and weekends) ask for the Anesthesia Physician ammonium sulfate operator ?? If your child is vomiting more [...] handout for instructions. Thank you for choosing [facility]! [facility] RO[facility] documented in this encounter Medications at Time of Discharge acetaminophen (TYLENOL) 500 mg tablet Take 1 tablet (500 mg total) by mouth every 6 (six) hours as needed for pain 60 tablet 07/29/2021 amitriptyline (ELAVIL) 10 mg tablet Take 10 mg by mouth nightly at bedtime. 07/07/2021 ergocalciferol (VITAMIN D) 50,000 unit capsule TAKE 1 CAPSULE BY MOUTH WEEKLY FOR 8 WEEKS 06/03/2021 hydrocortisone (ANUSOL-HC) 2.5 % rectal cream APPLY TOPICALLY TO RECTAL AREA 2 TO 4 TIMES DAILY FOR 5 DAYS 02/11/2021 ibuprofen (ADVIL,MOTRIN) 600 mg tablet Take 1 tablet (600 mg total) by mouth every 6 (six) hours as needed for pain 60 tablet 07/29/2021 ondansetron ODT (ZOFRAN-ODT) 4 mg disintegrating tablet TAKE 1 TABLET BY MOUTH THREE TIMES DAILY NEEDED FOR NAUSEA AND VOMITING 06/04/2021 oxyCODONE (ROXICODONE) 5 mg immediate release tabletIndications:Pa in Take 1 tablet (5 mg total) by mouth every 4 (four) hours as needed for pain 10 tablet 07/29/2021 Pentasa 500 mg CR capsule TAKE 4 CAPSULES BY MOUTH TWICE DAILY 07/08/2021 rOPINIRole (REQUIP) 0.5 mg tablet 04/13/2021 Vyvanse 40 mg capsule TAKE ONE CAPSULE BY MOUTH EVERY DAY AT 8 AM 04/14/2021 documented as of this encounter Ordered Prescriptions Prescription Sig Dispense Quantity Refills Last Filled Start Date End Date oxyCODONE (ROXICODONE) 5 mg immediate release tabletIndications:P ain Take 1 tablet (5 mg total) by mouth every 4 (four) hours as needed for pain 10 tablet 07/29/2021 ibuprofen (ADVIL,MOTRIN) 600 mg tablet Take 1 tablet (600 mg total) by mouth every 6 (six) hours as needed for pain 60 tablet 07/29/2021 acetaminophen (TYLENOL) 500 mg tablet Take 1 tablet (500 mg total) by mouth every 6 (six) hours as needed for pain 60 tablet 07/29/2021 documented in this encounter Discharge Disposition Disposition Code Departure Means Destination Discharge to home or self care documented in this encounter H&P Notes * Fortunato Hammond MD - 07/29/2021 8:00 AM CST I have reviewed the H&P, examined the patient, and endorse the findings as written. Plan of Care : Based on the above findings, I consider Rashaad Rodney to be an acceptable risk for : Procedure(s): CHORDEE REPAIR- reoperative Pain with erections Minimal induration over plication sites Understands excision of sutures may not resolve pain Understands will have some residual lateral curvature Consent signed [facility]ING ROOM Source Note - Tremayne Hernandez NP - 07/29/2021 7:27 AM SUPERVISOR FUSING ROOM Images from the original note were not [...] 10 mg tablet Past Week 07/07/21 -- Trenton Osuna MD ergocalciferol (VITAMIN D) 50,000 unit capsule 06/03/21 -- Trenton Osuna MD hydrocortisone (ANUSOL-HC) 2.5 % rectal cream [...] for requested labs within last 720 hours. [facility] ROOM [facility] documented in this encounter Nursing Notes * Nicole Mcgovern RN - 07/29/2021 11:45 AM CST All discharge information given to and explained to mother. Mother verbalized understanding with nofurther questions at this time. 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 Six months s/p right lateral corporal plication to correct cuvature Plication site pain with palpable granuloma Painful erections POSTOPERATIVE DIAGNOSIS Same. PROCEDURES Penile exploration with excision of Ethibond plication sutures and granuloma Corporal plication for penile curvature. ANESTHETIC General and 0.5% bupivacaine dorsal penile nerve block. HISTORY Rashaad Rodney is a 16 y.o. male noted to have lateral penile curvature and some pain with erections. Six months ago I performed right corporal plication to correct the curvature. He has some pain with erections that has perhaps increased. There is a small nodule palpable at the plication site and this is tender and bothersome to him. He presents for excision of the Ethibond sutures and granuloma. He understands that he will likely still have some pain with erections and will likely have somemild lateral curvature that should not impact sexual intercourse. PROCEDURE After anesthetic was administered, the patient was prepped and draped in standard fashion. A timeout was completed confirming the patient identifiers, as well as the scheduled surgical procedure. A dorsal penile nerve block was administered percutaneously using 10 mL of 0.5% bupivacaine. A 3-0 Prolene was placed in the glans as a stay suture. I made a skin incision dorsolaterally on the right side of the phallus using the prior circumcisionline. Dissection was carried down to the corporal body and the skin was dropped back just outside the plane of Johnson's fascia. I then identified and isolated the Ethibond suture and granuloma. I excised the mass, including an ellipse of the tunica. I then closed the defect in the tunica using a running 5-0 Vicryl. I reapproximated Johnson's fascia over the corporotomy with a running 5-0 Vicryl. I closed the dartos layer with interrupted 5-0 Vicryl. I closed the skin with a running cuticular 5-0 fast gut. A Telfa and Coban wrap dressing was applied to the phallus. The anesthetic was reversed. The patient was then transferred to recovery room having tolerated the procedure with difficulty. I was present for the entire case. [facility] * Pre-Procedure Instructions - Radha Pope RN - 07/28/2021 10:54 AM CST We are pleased that you and your doctor have chosen [facility] for this surgery. We hope that the following information will help make your visit a pleasant one. Any changes in health status from screening call: FAMILY AWARE VIA SHIVA TO CALL IF STATUS CHANGES PRIOR TO DOS Times sent via shiva Surgery Date: 07/29/2021 Surgery Time: 0830 Arrival Time: 0700 Solids Time: STOP at MN (solid food, milk products, formula) Clears Time: STOP at 0500 (water, clear apple juice, white soda or electrolyte solutions such as Gatorade or Pedialyte.) Nothing in mouth after Clears time Night before your surgery: ?? Good bath/shower, wash hair and brush teeth. Wear clean clothes after bath/shower. Day of surgery: We are located on the 6th floor of [facility]. Please take green [facility] elevators. Check in at the Registration Desk in the Same Day Surgery Waiting Area. Give medication as directed. ?? No makeup, no jewelry (including all body piercings) nail dominican and no metal in hair. ?? Dress [...] while you are still awake. Please call [phone] if you have questions, concerns or are delayed on day of surgery. [facility] documented in this encounter Plan of Treatment Not on file documented as of this encounter Procedures Procedure Name Priority Date/Time Associated Diagnosis Comments CHORDEE REPAIR 07/29/2021 8:30 AM SUPERVISOR FUSING ROOM Painful penile erection Chordee Special Needs covid locally documented in this encounter Visit Diagnoses Diagnosis Chordee Other specified disorder of penis documented in this encounter Admitting Diagnoses Diagnosis Painful penile erection Chordee Other specified disorder of penis documented in this encounter Administered Medications Inactive Administered Medications - up to 3 most recent administrations Medication Order MAR Action Action Date Dose Rate Site acetaminophen (TYLENOL) tablet 650 mg 650 mg, oral, Once as needed, other, Please administer before ibuprofen, if co-ordered AND if last dose given 4 hours or greater, Starting on Tue07/29/21 at 1010, For 6 hours, Phase I, Maximum dose = 650 mg Given 07/29/2021 10:26 AM SUPERVISOR FUSING ROOM 650 mg Lactated Ringer's (LR) infusion 100 mL/hr, intravenous, Continuous, Starting on Tue07/29/21 at 1045, Phase I Rate/Dose Verify 07/29/2021 10:43 AM SUPERVISOR FUSING ROOM 100 mL/hr 100 mL/hr lidocaine 1% buffered injection 0.1 mL 0.1 mL, intradermal, Once as needed, other, IV insertion, Starting on Tue07/29/21 at 0718, For 1 dose, Pre-Op, Maximum daily dose 0.1 mL/kg Administer immediately prior to procedure. Given 07/29/2021 7:44 AM SUPERVISOR FUSING ROOM 0.1 mL oxyCODONE (ROXICODONE) tablet 5 mg 5 mg, oral, Once as needed, other, for non-acute pain only after treatment of pain with non-opioid pain medication, if co-ordered, Starting on Tue07/29/21 at 1010, For 6 hours, Phase I, Maximum dose = 10 mg; may repeat in 2-4 hours as needed for continued ongoing pain., Indications: PainIndications:Pain Given 07/29/2021 10:26 AM SUPERVISOR FUSING ROOM 5 mg documented in this encounter Discontinued Medications Medication Sig Discontinue Reason Start Date End Da te buPROPion XL (WELLBUTRIN XL) 150 mg 24 hr tablet TAKE 1 TABLET BY MOUTH ONCE DAILY AT 8AM Error 04/13/2021 07/20/2021 busPIRone (BUSPAR) 5 mg tablet Take 5 mg by mouth 2 (two) times a day Error 02/11/2021 07/20/2021 escitalopram (LEXAPRO) 10 mg tablet Take 10 mg by mouth every morning Error 10/20/2020 07/20/2021 oxyCODONE (ROXICODONE) 5 mg immediate release tabletIndications:Pain Take 1 tablet (5 mg total) by mouth every 4 (four) hours as needed (severe pain) for up to 5 doses Error 01/01/2021 07/20/2021 traZODone (DESYREL) 100 mg tablet Error 04/13/2021 07/20/2021 Vyvanse 30 mg capsule TAKE 1 CAPSULE BY MOUTH EVERY DAY AT 8AM Error 10/20/2020 07/20/2021 predniSONE (DELTASONE) 20 mg tablet TAKE 1 TABLET BY MOUTH ONCE DAILY WITH FOOD. AVOID SUN EXPOSURE Error 04/15/2021 07/20/2021 documented as of this encounter Historical Medications * This list may reflect changes made after this encounter. ondansetron ODT (ZOFRAN-ODT) 4 mg disintegrating tablet TAKE 1 TABLET BY MOUTH THREE TIMES DAILY NEEDED FOR NAUSEA AND VOMITING 06/04/2021 Pentasa 500 mg CR capsule TAKE 4 CAPSULES BY MOUTH TWICE DAILY 07/08/2021 ergocalciferol (VITAMIN D) 50,000 unit capsule TAKE 1 CAPSULE BY MOUTH WEEKLY FOR 8 WEEKS 06/03/2021 amitriptyline (ELAVIL) 10 mg tablet Take 10 mg by mouth nightly at bedtime. 07/07/2021 added in this encounter Active and Recently Administered Medications Times are shown in SUPERVISOR FUSING ROOM. Continuous Medication Order 07/27/2021 07/28/2021 07/29/2021 Lactated Ringer's (LR) infusion 100 mL/hr, intravenous, Continuous, Starting on Tue07/29/21 at 1045, Phase I 1011 (Continued from OR - Provider: Ana Troncoso RN)1042 (Handoff - Provider: Ana Troncoso RN)1043 (Rate/Dose Verify - Provider: Nicole Mcgovern RN)1150 (Stopped - Provider: Nicole Mcgovern RN) PRN Medication Order 07/27/2021 07/28/2021 07/29/2021 acetaminophen (TYLENOL) tablet 650 mg 650 mg, oral, Once as needed, other, Please administer before ibuprofen, if co-ordered AND if last dose given 4 hours or greater, Starting on Tue07/29/21 at 1010, For 6 hours, Phase I, Maximum dose = 650 mg 1025 (Due)1026 (Give n - Provider: Ana Troncoso RN) bupivacaine (MARCAINE) 0.5 % (5 mg/mL) preservative free injection (CANCELED) As needed, Starting on Tue07/29/21 at 0853, Intra-Op 0853 (Given - Provid er: Fortunato Hammond MD) diphenhydrAMINE (BENADRYL) injection 25 mg 25 mg, intravenous, Administer over 15 Minutes, Once as needed, other, nausea, Starting on Tue07/29/21 at 1010, For 1 dose, Phase I HYDROmorphone (PF) (DILAUDID) injection 0.316 mg 0.316 mg (rounded from 0.315 mg = 0.005 mg/kg ? 63 kg), intravenous, Administer over 5 Minutes, Every 10 min PRN, other, may administer up to 2 doses for acute pain management, Starting on Tue07/29/21 at 1010, Phase I, Maximum dose = 0.4 mg, Indications: Pain lidocaine 1% buffered injection 0.1 mL (COMPLETED) 0.1 mL, intradermal, Once as needed, other, IV insertion, Starting on Tue07/29/21 at 0718, For 1 dose, Pre-Op, Maximum daily dose 0.1 mL/kg Administer immediately prior to procedure. 0744 (Given - Provid er: Nicole Mcgovern RN) oxyCODONE (ROXICODONE) tablet 5 mg 5 mg, oral, Once as needed, other, for non-acute pain only after treatment of pain with non-opioid pain medication, if co-ordered, Starting on Tue07/29/21 at 1010, For 6 hours, Phase I, Maximum dose = 10 mg; may repeat in 2-4 hours as needed for continued ongoing pain., Indications: Pain 1026 (Given - Provid er: Ana Troncoso RN) sodium chloride 0.9% irrigation (CANCELED) As needed, Starting on Tue07/29/21 at 0935, Intra-Op 0935 (Given - Provid er: Fortunato Hammond MD) documented in this encounter Orders Medications Ordered That Biju ht Not Have Been Administered Count Last Ordered Date First Ordered Date bupivacaine (MARCAINE) 0.5 % (5 mg/mL) preservative free injection 1 07/29/2021 diphenhydrAMINE (BENADRYL) injection 25 mg 1 07/29/2021 HYDROmorphone (PF) (DILAUDID ) injection 0.316 mg 1 07/29/2021 sodium chloride 0.9% flush 0.5-10 mL 2 07/02 sodium chloride 0.9% irrigation 1 CORE MEASURES Count Last Ordered Date First Ord ered Date REASON FOR NO VTE PROPHYLAXI S - HOSPITAL ADMISSION - MECHANICAL 1 07/29/2021 documented in this encounter Care Teams Paint Mixer Hand Relationship Specialty Start Date End Date Tiff Frost MD [address] [place] [address] PCP - General Pediatrics 10/17/20 documented as of this encounter
--- OUTSIDE RECORDS SUMMARY | 2024-07-20 04:50 | XMS_ITS | Encounter Summary ---
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
--- OUTSIDE RECORDS SUMMARY | 2024-07-20 04:50 | XMS_ITS | Encounter Summary ---
Author Organization [facility] Healthcare Address [address] [place] [address] Care Team Providers Care Fan Blade Aligner Name Role Phone Tiff Frost MD Primary Care Provider [phone] Encounter Details Date Type Department Care Team (Late st Contact Info) Description 07/29/2021 8:30 AM TENT FINISHER - 07/29/2021 9:30 AM [facility] Surgery [facility] [place] [address] Fortunato Hammond MD [address] [place] [address] [address] [place] [address] CHORDEE REPAIR- revision Surgery Details Date/Time Status Location OR Service Patient Class Case Cl ass Case Type Trauma Case? 07/29/2021 8:30 AM Posted [facility] OR Urology Outpatient Elective Panel 1 Procedure LRB Anes Op Region Wound Class Comments CHORDEE REPAIR- revision N/A General Penis Class I - Clean Surgeon Surgeon Role Service Panel Fortunato Hammond MD Primary Urology 1 Trinity Keyes MD Resident - Assisting Urology 1 Special Needs covid locally documented in this encounter Social History Tobacco Use Types Packs/Day Years Used Date Smoking Tobacco: Never Sex and Gender Information Value Date Recorded Sex Assigned at Not on file Legal Sex Male 4:15 AM TENT FINISHER Gender Identity Not on file Sexual Orientation Not on file documented as of this encounter Last Filed Vital Signs Vital Sign Reading Time Taken Comments Blood Pressure 126/91 07/29/2021 7:00 AM TENT FINISHER Pulse 86 07/29/2021 7:00 AM TENT FINISHER Temperature 36.6 ??C (97.9 ??F) 07/29/2021 8:25 AM CS T Respiratory Rate 12 07/29/2021 7:00 AM TENT FINISHER Oxygen Saturation 97% 07/29/2021 7:00 AM TENT FINISHER Inhaled Oxygen Concentration - - Weight 63 kg (138 lb 14.2 oz) 07/29/2021 7:00 AM TENT FINISHER Height 178 cm (5' 10.08 ) 07/29/2021 7:00 AM TENT FINISHER Body Mass Index 19.88 07/29/2021 7:00 AM TENT FINISHER Body Mass Index Percentile 19.64% 07/29/2021 7:0 0 AM TENT FINISHER Growth Chart: [facility] (Boys, 2-2 0 Years) documented in this encounter Discharge Instructions * Discharge Instructions* Ana Troncoso RN - 07/29/2021 10:12 AM TENT FINISHER Medicines: - Tylenol and Ibuprofen scheduled for [...] needed. Call the urology office with issuesat [phone]. Tuesday through Tuesday, 8 AM to 4:30 PM, call [phone] and ask for a member of your doctor's team. After 4:30 PM during the week, on weekends and holidays, call [phone] and ask to have the Urology Borematic Machine Operator Physician paged for you. Discharge Instructions for [...] and weekends) ask for the Anesthesia Physician slot machine department floorperson ?? If your child is vomiting more [...] handout for instructions. Thank you for choosing [facility]! FINISHER documented in this encounter Medications at Time [...] have some residual lateral curvature Consent signed FINISHER Source Note - Tremayne Hernandez NP - 07/29/2021 7:27 AM TENT FINISHER Images from the original note were not [...] for requested labs within last 720 hours. FINISHER FINISHER documented in this encounter Nursing Notes * Nicole Mcgovern RN - 07/29/2021 11:45 AM CST All discharge information given to and explained to mother. Mother verbalized understanding with nofurther questions at this time. FINISHER documented in this encounter Miscellaneous Notes * Op Note - Fortunato Hammond MD - 07/29/2021 8:53 AM CST NAME: Rashaad Rodney DATE OF SERVICE: 07/29/2021 DATE OF : 2005 CSN: [id number] SURGEON: Fortunato Hammond MD CO-SURGEON: COIL WINDER: Trinity Keyes MD PREOPERATIVE DIAGNOSES Congenital penile [...] I was present for the entire case. FINISHER * Pre-Procedure Instructions - Radha Pope RN - 07/28/2021 10:54 AM CST We are pleased that you and your doctor have chosen [facility] for this surgery. We hope that the [...] no jewelry (including all body piercings) nail emirati and no metal in hair. ?? Dress [...] while you are still awake. Please call [phone] if you have questions, concerns or are delayed on day of surgery. FINISHER documented in this encounter Plan of Treatment Not on file documented as of this encounter Procedures Procedure Name Priority Date/Time Associated Diagnosis Comments CHORDEE REPAIR 07/29/2021 8:30 AM TENT FINISHER Painful penile erection Chordee Special Needs covid locally documented in this encounter Visit Diagnoses Diagnosis Chordee Other specified disorder of penis Painful penile erection Chordee Other specified disorder [...] = 650 mg Given 07/29/2021 10:26 AM TENT FINISHER 650 mg bupivacaine (MARCAINE) 0.5 % (5 mg/mL) preservative free injection As needed, Starting on Tue07/29/21 at 0853, Intra-Op Given 07/29/2021 8:53 AM TENT FINISHER 10 mL Surgical Site Lactated Ringer's (LR) infusion 100 mL/hr, intravenous, Continuous, Starting on Tue07/29/21 at 1045, Phase I Rate/Dose Verify 07/29/2021 10:43 AM TENT FINISHER 100 mL/hr 100 mL/hr lidocaine 1% buffered injection 0.1 mL 0.1 mL, intradermal, Once as needed, other, IV insertion, Starting on Tue07/29/21 at 0718, For 1 dose, Pre-Op, Maximum daily dose 0.1 mL/kg Administer immediately prior to procedure. Given 07/29/2021 7:44 AM TENT FINISHER 0.1 mL oxyCODONE (ROXICODONE) tablet 5 mg 5 mg, oral, Once as needed, other, for non-acute pain only after treatment of pain with non-opioid pain medication, if co-ordered, Starting on Tue07/29/21 at 1010, For 6 hours, Phase I, Maximum dose = 10 mg; may repeat in 2-4 hours as needed for continued ongoing pain., Indications: PainIndications:Pain Given 07/29/2021 10:26 AM TENT FINISHER 5 mg sodium chloride 0.9% irrigation As needed, Starting on Tue07/29/21 at 0935, Intra-Op Given 07/29/2021 9:35 AM TENT FINISHER 100 mL Surgical Site documented in this encounter Discontinued Medications Medication [...] Recently Administered Medications Times are shown in TENT FINISHER. Continuous Medication Order 07/27/2021 07/28/2021 07/29/2021 Lactated [...] Count Last Ordered Date First Ordered Date diphenhydrAMINE (BENADRYL) injection 25 mg 1 07/29/2021 HYDROmorphone (PF) (DILAUDID ) injection 0.316 mg 1 07/29/2021 sodium chloride 0.9% flush 0.5-10 mL 2 07/02 CORE MEASURES Count Last Ordered Date First Ord ered Date REASON FOR NO VTE PROPHYLAXI S - HOSPITAL ADMISSION - MECHANICAL 1 07/29/2021 documented in this encounter Care Teams Fan Blade Aligner Relationship Specialty Start Date End Date Tiff Frost MD [address] [place] [address] PCP - General Pediatrics 10/17/20 documented as of this encounter
--- OUTSIDE RECORDS SUMMARY | 2024-07-20 04:50 | XMS_ITS | Encounter Summary ---
Author Organization [facility] Healthcare Address [address] [place] [address] Care Team Providers Care Parts Analyst Name Role Phone Tiff Frost MD Primary Care Provider [phone] Encounter Details Date Type Department Care Team (Late st Contact Info) Description 05/17/2021 Telephone [facility] Surgeon [address] [place] [address] Trinity Keyes MD [address] [facility] [address] [place], [place] [id number] Social History Tobacco Use Types Packs/Day Years Used Date Smoking Tobacco: Never Sex and Gender Information Value Date Recorded Sex Assigned at Not on file Legal Sex Male 4:[address] CONTRACTOR Gender Identity Not on file Sexual Orientation Not on file documented as of this encounter Miscellaneous Notes * Telephone Encounter - Trinity Keyes MD - 05/17/2021 1:58 PM CDT Patient calls continuing to have persistent pain. He also says his erections are no longer straight. He would like to be seen SHANTELL. Can we please add him on to one of Dr. Denise clinics this week? Thank you, Rashmi RUGGIERO 05/19/21 Phone call to Rashaad to discuss He is frustrated by pain. He says preoperative discomfort was in the entire penis and now seems to be localized at the base. He is concerned that he is forming scar tissue at the site of the plication (was not evident on PE on 05/01). He thinks that there may be some recurrent curvature. He requested removal of the plication sutures. I think this is ill advised. He will take a picture of his erection and save on his phone. We will set up appt to see me on Tuesday afternoon. documented in this encounter Plan of Treatment Not on file documented as of this encounter Visit Diagnoses Not on filedocumented in this encounter Care Teams Parts Analyst Relationship Specialty Start Date End Date Tiff Frost MD [address] [place] [address] PCP - General Pediatrics 10/17/20 documented as of this encounter
--- OUTSIDE RECORDS SUMMARY | 2024-07-20 04:50 | XMS_ITS | Encounter Summary ---
Author Organization [facility] Address [address] [place] [address] Phone Care Team Providers Care Call Center Specialist Name Role Phone Tiff Frost MD Primary Care Provider [phone] Encounter Details Date Type Department Care Team (Late st Contact Info) Description 11/20/2020 Orders Only [facility] [address] [place] [address] [place] [address] Fortunato Hammond MD 1 [facility] [address] [place] [address] Social History Tobacco Use Types Packs/Day Years Used Date Smoking Tobacco: Never Sex and Gender Information Value Date Recorded Sex Assigned at Not on file Legal Sex Male 4:15 AM CARE SUPPORT REPRESENTATIVE Gender Identity Not on file Sexual Orientation Not on file documented as of this encounter Plan of Treatment Not on file documented as of this encounter Visit Diagnoses Not on filedocumented in this encounter Care Teams Call Center Specialist Relationship Specialty Start Date End Date Tiff Frost MD [address] [place] [address] PCP - General Pediatrics 10/17/20 documented as of this encounter
--- OUTSIDE RECORDS SUMMARY | 2024-07-20 04:50 | XMS_ITS | Encounter Summary ---
Author Organization [facility] Address [address] [place] [address] Phone Care Team Providers Care Railroad Hand Name Role Phone Tiff Frost MD Primary Care Provider [phone] Reason for Visit * Reason Comments Return Patient penile pain * Consultation (Routine) - Closed Specialty Diagnoses / Procedures Referred By Contshilpi t Referred To Contact Pediatric Urology Diagnoses Tiff Ulloa MD [address] [place] [address] Phone: tel: fax: Fortunato Hammond MD 1 [facility] [address] [place] [address] Phone: tel: fax: Referral ID Status Reason Start Date Expiration Date V isits Requested Visits Authorized [id number] Closed Specialty Services Required 10/17/2020 11/16/2021 99 99 Encounter Details Date Type Department Care Team (Late st Contact Info) Description 05/22/2021 1:15 PM CDT Office Visit [facility] Surgery [facility] 2nd [place] [address] [place] [address] Fortunato Hammond MD 1 [facility] [address] [place] [address] Lesley (Primary Dx); Painful penile erection Social History Tobacco Use Types Packs/Day Years Used Date Smoking Tobacco: Never Sex and Gender Information Value Date Recorded Sex Assigned at Not on file Legal Sex Male 4:15 AM PULL THROUGH HOOKER Gender Identity Not on file Sexual Orientation Not on file documented as of this encounter Last Filed Vital Signs Vital Sign Reading Time Taken Comments Blood Pressure 142/90 05/22/2021 1:49 PM CDT Pulse 126 05/22/2021 1:49 PM CDT Temperature 36.6 ??C (97.9 ??F) 05/22/2021 1:49 PM CD T Respiratory Rate - - Oxygen Saturation - - Inhaled Oxygen Concentration - - Weight 67.1 kg (148 lb) 05/22/2021 1:49 PM CDT Height 180.3 cm (5' 11 ) 05/22/2021 1:49 PM CDT Body Mass Index 20.64 05/22/2021 1:49 PM CDT Body Mass Index Percentile 31.64% 05/22/2021 1:4 9 PM CDT Growth Chart: [facility] (Boys, 2-2 0 Years) documented in this encounter Progress Notes * Fortunato Hammond MD - 05/22/2021 1:15 PM CDT Images from the original note were not included. Chief Complaint Patient presents with ??? Return Patient penile pain HPI: Rashaad Rodney is a 15 y.o. 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 He thinks that there is recurrent lateral curvature. He had pain with erections prior to surgery but this pain is different in character and more severe. Patient states since surgery he has experienced localized penile pain at the base. He reports he can feel thesuture line. Pain is worse with erections. This is sensitive to touch when flaccid. The pain variesin severity. Within the last 36 hours he has developed URI symptoms, fevers and chills. COVID testing yesterday was negative Review of systems Please refer to the Pediatric Urology Child history form scanned into the media section of the EMR. Physical Exam Vitals: 05/22/21 1349 BP: 142/90 Pulse: (!) 126 Temp: 36.6 ??C (97.9 ??F) Weight: 67.1 kg (148 lb) Height: 180.3 cm (5' 11 ) Constitutional: ill appearing. Chilling, wrapped in a blanket Psych: anxious : Penis: circumcised, normal in appearance. Orthotopic meatus, the Ethibond plication sutures arepalpable at the base laterally on the right base. Some tenderness. ?increased in size over the last3 weeks. No definite granuloma Meatus: normal Scrotum/Testes: Normal looking to inspection & palpation. Bilaterally descended testes. No hernia or hydrocele. Assessment and Plan: It was a pleasure seeing Rashaad Rodney in clinic today. I reviewed the history and findings with Rashaad and his mother (by phone). The image of the erect penis on his phone shows minimal ~5 degree curvature to the left. This is no a functional concern. The plication sutures are tender to palpation with some mass effect without overlying cellulitis. I recommended scheduled ibuprofen for 10 days. This is very bothersome to him and is causing a great deal of distress. He would like to have the plication sutures removed. I would anticipate this would eliminate the local symptoms. He accepts that he may have recurrent curvature (intraoperatively was 20degrees) so this may not be a functional concern (I.e. curvature was not of the magnitude that he reported preoperatively). He will likely still have the baseline discomfort with erections. We discussed the surgical procedure. We will try to schedule in late June. He became light headed at the end of the visit (vasovagal vs. Progression of URI--tachycardic so did not seem vagal). We had him lay down on the stretcher and his father picked him up to take him home. Patient seen and examined with resident. Note reviewed and amended. Agree with assessment and plan. documented in this encounter Plan of Treatment Not on file documented as of this encounter Visit Diagnoses Diagnosis Chordee- Primary Other specified disorder of penis Painful penile erection documented in this encounter Care Teams Railroad Hand Relationship Specialty Start Date End Date Tiff Frost MD [address] [facility] [address] PCP - General Pediatrics 10/17/20 documented as of this encounter
--- OUTSIDE RECORDS SUMMARY | 2024-07-20 04:50 | XMS_ITS | Clinical Summary ---
Author Organization [facility] Address [address] [place] [address] Care Team Providers Care Desktop Administrator Name Role Phone Tiff Frost MD Primary Care Provider [phone] Allergies Active Allergy Reactions Criticality Noted Date [...] Date 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 Surgical History Surgery Date Site/Laterality Comments TONSILLECTOMY/ADENOIDECTOMY at 3yo UPPER GASTROINTESTINAL ENDOSCOPY 06/01/2021 - 06/30/2021 with colonoscopy MYRINGOTOMY W/ TUBES x3 CHORDEE RELEASE Medical History Medical History Date Comments Asthma ADD (attention deficit disorder) Allergic epi pen used aft er anaphylaxis Constipation Chordee Family History Medical History Relation Name Comments Urolithiasis Father Diabetes Mother Relation Name Status Comments Father Mother Social History Tobacco Use Types Packs/Day Years Used Date Smoking Tobacco: Never Sex and Gender Information Value Date Recorded Sex Assigned at Not on file Legal Sex Male 4:15 AM AUTHORS MOTIVATIONAL Gender Identity Not on file Sexual Orientation Not on file Obstetrics History Last Filed Vital Signs Vital Sign Reading Time Taken Comments Blood Pressure 122/79 07/29/2021 11:30 AM AUTHORS MOTIVATIONAL Pulse 96 07/29/2021 11:30 AM AUTHORS MOTIVATIONAL Temperature 36.9 ??C (98.4 ??F) 07/29/2021 11:[address] Respiratory Rate 20 07/29/2021 11:30 AM AUTHORS MOTIVATIONAL Oxygen Saturation 96% 07/29/2021 11:30 AM AUTHORS MOTIVATIONAL Inhaled Oxygen Concentration - - Weight 63 kg (138 lb 14.2 oz) 07/29/2021 7:00 AM AUTHORS MOTIVATIONAL Height 178 cm (5' 10.08 ) 07/29/2021 7:00 AM AUTHORS MOTIVATIONAL Body Mass Index 19.88 07/29/2021 7:00 AM AUTHORS MOTIVATIONAL Plan of Treatment Health Maintenance Due Date Last Done Comments Depression Screening 2005 Hepatitis C Screening 2003 Meningococcal B Vaccine (1 of 2 - Patient Seeks Protection) 2019 Regular Well Visit/Exam 18-64 2021 Covid-19 Vaccine ( season) 2024 11/26/2020, 10/28/2020 Influenza Vaccine (#1) 2024 8, 05/01/2018, 08/15/2007 DTaP/Tdap/Td Vaccine (3 - Td or Tdap) 02/21/2025 02/21/2015, 08/15/2007, 2003, Additional history exists Pneumococcal vaccine <65 Aged Out 2003, 08/01 No longer eligible based on patient's age to complete this topic Varicella Vaccines Completed 05/14/2015, 02/03/2009 HPV Vaccines Completed 11/29/2016, 03/12/2016 Meningococcal Vaccine Completed 10/03/2020, 015 Insurance [facility] CLAIMS [employer]IG[employer] [facility] CLAIM[place] [address] [facility] CLAIMS [employer] [facility] CLAIMS Advance Directives For more information, please contact: [phone] * Full Code (Latest Code Status on File) Date Activated Date Inactivated Comments 07/29/2021 7:18 AM 07/29/2021 4:01 PM * Full Code Date Activated Date Inactivated Comments 01/01/2021 2:27 PM 01/02/2021 12:08 AM Care Teams Desktop Administrator Relationship Specialty Start Date End Date Tiff Frost MD [address] [place] [address] PCP - General Pediatrics 10/17/20
--- OUTSIDE RECORDS SUMMARY | 2024-07-20 04:50 | XMS_ITS | Encounter Summary ---
Author Organization [facility] Healthcare Address [address] [place] [address] Care Team Providers Care Sled Maker Name Role Phone Tiff Frost MD Primary Care Provider [phone] Encounter Details Date Type Department Care Team (Late st Contact Info) Description 12/30/2020 12:10 PM CDT Lab [address] [address] Fortunato Hammond MD [address] [place] [address] [address] [place] [address] Pre-procedure lab exam Discharge Disposition: Discharge to home or self care Social History Tobacco Use Types Packs/Day Years Used Date Smoking Tobacco: Never Sex and Gender Information Value Date Recorded Sex Assigned at Not on file Legal Sex Male 4:15 AM 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 POLICE 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 Gender Identity Not on file Sexual Orientation Not on file documented as of this encounter Discharge Disposition Disposition Code Departure Means Destination Discharge to home or self care documented in this encounter Plan of Treatment Not on file documented as of this encounter Procedures Procedure Name Priority Date/Time Associated Diagnosis Comments COVID-19 CORONAVIRUS RNA Routine 12/30/2020 12:10 PM CDT Pre-procedure lab exam documented in this encounter Results * COVID-19 Coronavirus RNA Nasopharyngeal (12/30/2020 12:10 PM CDT) COVID-19 RNA Not Detected [facility] ([facility]) Comment: Testing performed as a component of [...] and NAAT . ??Testing performed by the [facility] Molecular Infectious Disease Laboratory. The Novel Coronavirus Assay (COVID-19) Real Time RT-PCR assay [...] September 04, 2020. First COVID-19 test? Unknown [facility] ([place]) Comment:Testing performed by : [facility], [address] [place] [address], [id number] Employeed in healthcare? No [facility] ([place]) Comment:Testing performed by : [facility], [address] [place] [address], [id number] status? No [facility] ([place]) Comment:Testing performed by : [facility], [address] [place] [address]., [address] Group care resident? No [facility] ([place]) Comment:Testing performed by : [facility], [address] [place] [address]., [id number] Hospitalized? Unknown [facility] ([place]) Comment:Testing performed by : [facility], [address] [place] [address]., [id number] Is patient in ICU? Unknown [facility] ([place]) Comment:Testing performed by : [facility], [address] [place] [address], [id number] Symptomatic as defined by CDC? No [facility] ([place]) Comment:Testing performed by : [facility], [address] [place] [address], [address] Nasopharyngeal 12/30/2020 12 :10 PM CDT 12/30/2020 8:24 PM CDT Narrative [facility]) - 12/31/2020 5:29 AM CDT What is the reason for testing?->Screening prior to scheduled procedure or surgery us Fortunato Hammond MD LAB MICROBIOLOGY - GENERAL ORDERABLES Final Result [facility] ([facility]) 1 [facility] [place] [address] documented in this encounter Visit Diagnoses Diagnosis Pre-procedure lab exam Pre-procedural laboratory examination documented in this encounter Care Teams Sled Maker Relationship Specialty Start Date End Date Tiff Frost MD [address] [place] [address] PCP - General Pediatrics 10/17/20 documented as of this encounter
--- OUTSIDE RECORDS SUMMARY | 2024-07-20 05:20 | XMS_ITS | Encounter Summary ---
Author Organization [facility] Address [address] [place] [address] Phone Care Team Providers Care Grit Blaster Name Role Phone Tiff Frost MD Primary Care Provider [phone] Reason for Visit * Reason Comments New Patient chordee; painful ere ctions * Consultation (Routine) - Closed Specialty Diagnoses / Procedures Referred By Briseida martin Referred To Contact Pediatric Urology Diagnoses Chordee Tiff Frost MD [address] [place] [address] Phone: tel: fax: Fortunato Hammond MD [address] [place] [address] Phone: tel: fax: Referral ID Status Reason Start Date Expiration Date V isits Requested Visits Authorized [id number] Closed Specialty Services Required 10/17/2020 11/16/2021 99 99 Encounter Details Date Type Department Care Team (Late st Contact Info) Description 11/14/2020 12:30 PM CDT Office Visit [facility] [address]nd [place] [address] [place] [address] Fortunato Hammond MD 1 [facility] [address] [place] [address] [place] Social History Tobacco Use Types Packs/Day Years Used Date Smoking Tobacco: Never Sex and Gender Information Value Date Recorded Sex Assigned at Not on file Legal Sex Male 4:15 AM FIXED WING PILOT Gender Identity Not on file Sexual Orientation [...] 11/14/2020 12: 20 PM CDT Growth Chart: [facility] [...] you have any questions or concerns at [phone]. documented in this encounter Plan of Treatment [...] 021 documented in this encounter Care Teams Grit Blaster Relationship Specialty Start Date End Date Tiff Frost MD [address] [place] [address] PCP - General Pediatrics 10/17/20 documented as of this encounter
--- OUTSIDE RECORDS SUMMARY | 2024-07-20 05:20 | XMS_ITS | Encounter Summary ---
Author Organization [facility] Address [address] [place] [address] Phone Care Team Providers Care Public Address System Operator Name Role Phone Tiff Frost MD Primary Care Provider [phone] Encounter Details Date Type Department Care Team (Late st Contact Info) Description 11/20/2020 Orders Only [facility] Surgery One [facility] 2nd [place] [address] [place] [address] Fortunato Hammond MD 1 [facility] [address] [place] [address] Social History Tobacco Use Types Packs/Day Years Used Date Smoking Tobacco: Never Sex and Gender Information Value Date Recorded Sex Assigned at Not on file Legal Sex Male 4:15 AM HEARING AID DISPENSER Gender Identity Not on file Sexual Orientation Not on file documented as of this encounter Plan of Treatment Not on file documented as of this encounter Visit Diagnoses Not on filedocumented in this encounter Care Teams Public Address System Operator Relationship Specialty Start Date End Date Tiff Frost MD [address] [address] PCP - General Pediatrics 10/17/20 documented as of this encounter
--- OUTSIDE RECORDS SUMMARY | 2024-07-20 05:20 | XMS_ITS | Encounter Summary ---
Author Organization [facility] Address [address] [place] [address] Phone Care Team Providers Care Marker Shipments Name Role Phone Tiff Frost MD Primary Care Provider [phone] Encounter Details Date Type Department Care Team (Late st Contact Info) Description 04/07/2021 Telephone [facility]) - [facility] Urology [address] [facility] 11th [place] [address] [place] [address] Zach House MD [address] [facility] [address] [place] [address] Social History Tobacco Use Types Packs/Day Years Used Date Smoking Tobacco: Never Sex and Gender Information Value Date Recorded Sex Assigned at Not on file Legal Sex Male 4:15 AM CLINICAL PROGRAM COORDINATOR Gender Identity Not on file Sexual Orientation [...] with Dr. Hammond or a Peds Uro TECHNICAL PHOTOGRAPHER? Zach Villanueva documented in this encounter Plan of Treatment Not on file documented as of this encounter Visit Diagnoses Not on filedocumented in this encounter Care Teams Marker Shipments Relationship Specialty Start Date End Date Tiff Frost MD [address] [place] [address] PCP - General Pediatrics 10/17/20 documented as of this encounter
--- OUTSIDE RECORDS SUMMARY | 2024-07-20 05:20 | XMS_ITS | Encounter Summary ---
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 Gender Identity Not on file Sexual Orientation Not on file documented as of this encounter Plan of Treatment Not on file documented as of this encounter Procedures Procedure Name Priority Date/Time Associated Diagnosis Comments T-SPOT.TB Routine 10/31/2023 3:06 PM CDT Pre-employment health screening examination documented in this encounter Results * T-SPOT.TB Blood (10/31/2023 3:06 PM CDT) [facility] T-SPOT.TB Negative SeeBelow Comment: Normal Value: [...] ([place]) T-SPOT.TB Panel B Spot Count 0 [facility] ([place]) T-SPOT.TB Negative Control Passed [facility] ([place]) T-SPOT.TB Positive Control Passed [facility] Comment: Test Performed at: [facility] [address] [place] [address] ??[id number] ? JENNIFER MONTIEL,PHD Blood 10/31/2023 3:06 PM CDT 10/31/2023 3:16 PM CDT Narrative [facility] - 11/02/2023 3:53 PM CDT Bill to [facility] [employer] - 1520 Patient is employed by/enrolled at:->[employer] Sandip Guerra MD LAB MICROBIOLOGY - GENERAL OR DERABLES Final Result [facility] 1 [facility] Department [place] [address] documented in this encounter Visit Diagnoses Diagnosis Pre-employment health screening examination Health examination of defined subpopulation documented in this encounter Care Teams Director Emergency Department Relationship Specialty Start Date End Date Tiff Frost MD [address] [place] [address] PCP - General Pediatrics 10/17/20 documented as of this encounter
--- OUTSIDE RECORDS SUMMARY | 2024-07-20 05:20 | XMS_ITS | Encounter Summary ---
Author Organization [facility] Address [address] [place] [address] Phone Care Team Providers Care Boat Outfitter Name Role Phone Tiff Frost MD Primary Care Provider [phone] Encounter Details Date Type Department Care Team (Late st Contact Info) Description 07/20/2021 Telephone [facility] Surgery One [facility] 2nd [place] [address] [place] [address] Fortunato Hammond MD 1 [facility] [address] [place], [place] [id number] Social History Tobacco Use Types Packs/Day Years Used Date Smoking Tobacco: Never Sex and Gender Information Value Date Recorded Sex Assigned at Not on file Legal Sex Male 4:15 AM MANAGER CARE Gender Identity Not on file Sexual Orientation Not on file documented as of this encounter Miscellaneous Notes * Telephone Encounter - Charles Yousif RN - 07/20/2021 2:40 PM CST Order faxed to [phone] ----- Message from Nissa Carr RN sent at 07/20/2021 11:42 AM MANAGER CARE ----- Regarding: covid order Please place order for [facility] in [facility]. They will be going end of or Tuesday. 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
--- OUTSIDE RECORDS SUMMARY | 2024-07-20 05:20 | XMS_ITS | Encounter Summary ---
Author Organization [facility] Address [address] [place] [address] Phone Care Team Providers Care Target Developer Name Role Phone Tiff Frost MD Primary Care Provider [phone] Reason for Visit * Reason Comments Return Patient penile pain * Consultation (Routine) - Closed Specialty Diagnoses / Procedures Referred By Contshilpi t Referred To Contact Pediatric Urology Diagnoses Tiff Ulloa MD [address] [place] [address] Phone: tel: fax: Fortunato Hammond MD 1 [facility] [address] [place] [address] Phone: tel: fax: Referral ID Status Reason Start Date Expiration Date V isits Requested Visits Authorized [id number] Closed Specialty Services Required 10/17/2020 11/16/2021 99 99 Encounter Details Date Type Department Care Team (Late st Contact Info) Description 05/22/2021 1:15 PM CDT Office Visit [facility] Surgery [facility] 2nd [place] [address] [place] [address] Fortunato Hammond MD 1 [facility] [address] [place] [address] Lesley (Primary Dx); Painful penile erection Social History Tobacco Use Types Packs/Day Years Used Date Smoking Tobacco: Never Sex and Gender Information Value Date Recorded Sex Assigned at Not on file Legal Sex Male 4:15 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
--- OUTSIDE RECORDS SUMMARY | 2024-07-20 05:20 | XMS_ITS | Encounter Summary ---
Author Organization [facility] Healthcare Address [address] [place] [address] Care Team Providers Care Paint Pourer Name Role Phone Tiff Frost MD Primary Care Provider [phone] Encounter Details Date Type Department Care Team (Late st Contact Info) Description 07/29/2021 8:27 AM HOSPITAL COOK Anesthesia Event [facility] [place] [address] Kyra Garrett MD [address] [facility] [address] [place] [address] Bree Vergara NP 1 [facility] [place] [address] Anesthesia Record Procedure Summary Procedure Name Responsible [...] Pe nis; 07/03/24 (Retired LDA, 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 [employer] with LDA Utility); 1213 (Retired LDA, 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 [employer] with LDA Utility) 01/01/21 1743 by Priscilla [...] 0858; Perineum; 07/03/24 (Retired LDA, 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 [employer] with LDA Utility); 1213 (Retired LDA, 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 [employer] with LDA Utility) 07/29/21 0858 by Sharron Caldwell RN 07/03/24 1213 by Discharge Provider, Automatic documented in this encounter Social History Tobacco Use Types Packs/Day Years Used Date Smoking Tobacco: Never Sex and Gender Information Value Date Recorded Sex Assigned at Not on file Legal Sex Male 4:15 AM HOSPITAL COOK Gender Identity Not on file Sexual Orientation Not on file documented as of this encounter OR Notes * Anesthesia Postprocedure Evaluation - Sera Quintanilla MD - 07/29/2021 10:31 AM CST Patient: Rashaad Rodney Procedure Summary Date: 07/29/21 Room / Location: [address] OPERATING ROOM Anesthesia Start: 826 Anesthesia [...] normothermic Nausea/Vomiting status: none No complications documented. ITAL COOK * Anesthesia Procedure Notes - Jl Foote MD - 07/29/2021 9:02 AM HOSPITAL COOK Associated Order(s): Airway Airway Patient location: OR [...] SGA size: 4 Number of attempts: 1 ITAL COOK * Anesthesia Preprocedure Evaluation - Kyra Garrett [...] Medication protocol when under care of a INSEAMER Planned anesthesia: General Team communication plan: LMA [...] and agree to proceed. All questions answered. ITAL COOK ITAL COOK ITAL COOK documented in this encounter Plan of Treatment Not on file documented as of this encounter Procedures Procedure Name Priority Date/Time Associated Diagnosis Comments ANESTHESIA INTUBATION Routine 07/29/2021 8:34 AM HOSPITAL COOK documented in this encounter Results * Airway (07/29/2021 8:34 AM HOSPITAL COOK) Narrative Jl Foote MD - 07/29/2021 8:34 AM HOSPITAL COOK Jl Foote MD ? 07/29/2021 ??9:03 AM [...] 0848, Anesthesia Intra-op Given 07/29/2021 8:48 AM HOSPITAL COOK 4 mg HYDROmorphone (PF) (DILAUDID) injection intravenous, Administer over 5 Minutes, As needed, Starting on Tue07/29/21 at 0835, Anesthesia Intra-op Given 07/29/2021 8:35 AM HOSPITAL COOK 200 mcg Lactated Ringer's (LR) infusion intravenous, Continuous PRN, Starting on Tue07/29/21 at 0835, Anesthesia Intra-op New Bag 07/29/2021 8:35 AM HOSPITAL COOK lidocaine PF (XYLOCAINE) 10 mg/mL (1 %) preservative free injection intravenous, As needed, Starting on Tue07/29/21 at 0835, Anesthesia Intra-op Given 07/29/2021 8:35 AM HOSPITAL COOK 40 mg ondansetron (ZOFRAN) injection intravenous, Administer over 15 Minutes, As needed, Starting on Tue07/29/21 at 0937, Anesthesia Intra-op Given 07/29/2021 9:37 AM HOSPITAL COOK 4 mg propofoL (DIPRIVAN) 10 mg/mL IV intravenous, As needed, Starting on Tue07/29/21 at 0835, Anesthesia Intra-op Given 07/29/2021 8:35 AM HOSPITAL COOK 400 mg documented in this encounter Care Teams Paint Pourer Relationship Specialty Start Date End Date Tiff Frost MD [address] [place] [address] PCP - General Pediatrics 10/17/20 documented as of this encounter
--- OUTSIDE RECORDS SUMMARY | 2024-07-20 05:20 | XMS_ITS | Encounter Summary ---
Author Organization [facility] Healthcare Address [address] [place] [address] Care Team Providers Care Online Tutor Name Role Phone Tiff Frost MD Primary Care Provider [phone] Encounter Details Date Type Department Care Team (Late st Contact Info) Description 12/30/2020 12:10 PM CDT Lab [address] [address] Fortunato Hammond MD [address] [place] [address] [address] [place] [address] Pre-procedure lab exam Discharge Disposition: Discharge to home or self care Social History Tobacco Use Types Packs/Day Years Used Date Smoking Tobacco: Never Sex and Gender Information Value Date Recorded Sex Assigned at Not on file Legal Sex Male 4:15 AM AS400 PROGRAMMER Gender Identity Not on file Sexual Orientation [...] COVID-19 RNA Not Detected [facility] ([place]) Comment: Testing performed as a component of [...] and NAAT . ??Testing performed by the [facility] Molecular Infectious Disease Laboratory. The Novel Coronavirus [...] [facility] ([place]) Comment:Testing performed by : [facility], [address] [place] [address], [address] Employeed in healthcare? No [facility] ([place]) Comment:Testing performed by : [facility], [address] [place] [address], [address] status? No [facility] ([place]) Comment:Testing performed by : [facility], [address] [place] [address]., [address] Group care resident? No [facility] ([place]) Comment:Testing performed by : [facility], [address] [place] [address]., [address] Hospitalized? Unknown [facility] ([place]) Comment:Testing performed by : [facility], [address] [place] [address]., [address] Is patient in ICU? Unknown [facility] ([place]) Comment:Testing performed by : [facility], [address] [place] [address], [address] Symptomatic as defined by CDC? No [facility] ([place]) Comment:Testing performed by : [facility], [address] [place] [address], [address] Nasopharyngeal 12/30/2020 12 :10 PM CDT 12/30/2020 8:24 PM CDT Narrative [facility] ([place]) - 12/31/2020 5:29 AM CDT What is the reason for testing?->Screening prior to scheduled procedure or surgery us Fortunato Hammond MD LAB MICROBIOLOGY - GENERAL ORDERABLES Final Result [facility] ([place]) 1 [facility] Department [place] [address] documented in this encounter Visit Diagnoses Diagnosis Pre-procedure lab exam Pre-procedural laboratory examination documented in this encounter Care Teams Online Tutor Relationship Specialty Start Date End Date Tiff Frost MD [address] [place] [address] PCP - General Pediatrics 10/17/20 documented as of this encounter
--- OUTSIDE RECORDS SUMMARY | 2024-07-20 05:20 | XMS_ITS | Encounter Summary ---
Author Organization [facility] Facility Care Team Providers Care Rail Transportation Tabeler Name Role Phone Suhas Collins MD Primary Care Provider [phone] Encounter Details Date Type Department Care Team (Latest Contact Info) Description 03/10/2019 Travel Social History Tobacco Use Types Packs/Day Years Used Date Smoking Tobacco: Never Assessed Sex and Gender Information Value Date Recorded Sex Assigned at Not on file Legal Sex Male 4:15 AM CREDIT HISTORIAN Gender Identity Not on file Sexual Orientation Not on file documented as of this encounter Plan of Treatment Not on file documented as of this encounter Visit Diagnoses Not on filedocumented in this encounter Care Teams Rail Transportation Tabeler Relationship Specialty Start Date End Date Suhas Collins MD [facility] [place] [address] PCP - General 03/10/19 10/16/20 documented as of this encounter
--- OUTSIDE RECORDS SUMMARY | 2024-07-20 05:20 | XMS_ITS | Encounter Summary ---
Author Organization [facility] Address [address] [place] [address] Phone Care Team Providers Care Death Clearance Coordinator Name Role Phone Tiff Frost MD Primary Care Provider [phone] Reason for Visit * Reason Comments Return Patient pain * Consultation (Routine) - Closed Specialty Diagnoses / Procedures Referred By Contshilpi martin Referred To Contact Pediatric Urology Diagnoses [place] Tiff Frost MD [address] [place] [address] Phone: tel: fax: Fortunato Hammond MD 1 [facility] [address] [place] [address] Phone: tel: fax: Referral ID Status Reason Start Date Expiration Date V isits Requested Visits Authorized [id number] Closed Specialty Services Required 10/17/2020 11/16/2021 99 99 Encounter Details Date Type Department Care Team (Late st Contact Info) Description 05/01/2021 3:15 PM CDT Office Visit [facility] Surgery [facility] 2nd [place] [address] [place] [address] Fortunato Hammond MD 1 [facility] [address] [place] [address] Painful penile erection (Primary Dx) Social History Tobacco Use Types Packs/Day Years Used Date Smoking Tobacco: Never Sex and Gender Information Value Date Recorded Sex Assigned at Not on file Legal Sex Male 4:15 AM GENERATING PLANT SUPERINTENDENT Gender Identity Not on file Sexual [...] 05/01/2021 2:4 6 PM CDT Growth Chart: [facility] [...] 1 added in this encounter Care Teams Death Clearance Coordinator Relationship Specialty Start Date End Date Tiff Frost MD [address] [place] [address] PCP - General Pediatrics 10/17/20 documented as of this encounter
--- OUTSIDE RECORDS SUMMARY | 2024-07-20 05:20 | XMS_ITS | Referral Summary ---
Author Organization [facility] Address [address] [place] [address] Care Team Providers Care Tower Dragline Operator Name Role Phone Tiff Frost MD Primary Care Provider [phone] Allergies Active Allergy Reactions Criticality Noted Date [...] on file Legal Sex Male 4:15 AM GLOVE OPERATOR Gender Identity Not on file Sexual Orientation Not on file Last Filed Vital Signs Vital Sign Reading Time Taken Comments Blood Pressure 122/79 07/29/2021 11:30 AM GLOVE OPERATOR Pulse 96 07/29/2021 11:30 AM GLOVE OPERATOR Temperature 36.9 ??C (98.4 ??F) 07/29/2021 11:[address] Respiratory Rate 20 07/29/2021 11:30 AM GLOVE OPERATOR Oxygen Saturation 96% 07/29/2021 11:30 AM GLOVE OPERATOR Inhaled Oxygen Concentration - - Weight 63 kg (138 lb 14.2 oz) 07/29/2021 7:00 AM GLOVE OPERATOR Height 178 cm (5' 10.08 ) 07/29/2021 7:00 AM GLOVE OPERATOR Body Mass Index 19.88 07/29/2021 7:00 AM GLOVE OPERATOR Plan of Treatment Not on file Insurance [place] [address] CIGNA [facility] CLAIMS [facility] CLAIMS [employer] [facility] CLAIMS Advance Directives For more information, please contact: [phone] * Full Code (Latest Code Status on File) Date Activated Date Inactivated Comments 07/29/2021 7:18 AM 07/29/2021 4:01 PM * Full Code Date Activated Date Inactivated Comments 01/01/2021 2:27 PM 01/02/2021 12:08 AM Care Teams Tower Dragline Operator Relationship Specialty Start Date End Date Tiff Frost MD [address] [place] [address] PCP - General Pediatrics 10/17/20
--- OUTSIDE RECORDS SUMMARY | 2024-07-20 05:20 | XMS_ITS | Encounter Summary ---
Author Organization [facility] Address [address] [place] [address] Phone Care Team Providers Care Clay Preparation Supervisor Name Role Phone Tiff Frost MD Primary Care Provider [phone] Encounter Details Date Type Department Care Team (Late st Contact Info) Description 07/13/2021 Telephone [facility] Nayan Blackwell CPhT Social History Tobacco Use Types Packs/Day Years Used Date Smoking Tobacco: Never Sex and Gender Information Value Date Recorded Sex Assigned at Not on file Legal Sex Male 4:15 AM DICE TABLE PERSON Gender Identity Not on file Sexual Orientation Not on file documented as of this encounter Miscellaneous Notes * Telephone Encounter - Nayan Blackwell CPhT - 07/13/2021 9:55 AM CST Images from the original note were not included. Insurance: Linkedwith ; [facility] Referral Required: NO Benefit exclusion: NO Authorization: NOT REQUIRED Comments: Benefits verified online @ [employer] Provider Website. [employer] . Coverage active effective 08/01/2020. ID# [id number] 05. 500 Deductible (met); 1000 Out of Pocket (500 applied); 80/20 Co-Insurance; No Copay; No Referral required; No Pre-Cert required. S/W Vivian Santoyo @ [employer] Pre-Cert Dept . CPT 11514; 52698 chordee repair no Pre-Cert/Pre-D required. Call ref# Vivian CrChandler 07/13/2021 10:39 AM EST. S/W Michelle Pierce @ [facility] . Coverage active effective 08/01/2020. ID# [id number]. 150 Deductible (12.51 applied); 1058 Out of Pocket (190.04 applied); No Co-Insurance. [employer]. No Pre-Cert required. [facility] secondary insurance to [employer]. Call ref# Michelle CollazoChandler 07/13/2021. JL 07/13/2021 Luis Villafuerte , A Referral is needed for the patient listed below. Patient: Rashaad Rodney : 2005 DATE OF SERVICE: 07.29.2021 CPT : 44605 DIAGNOSIS CODE : Painful penile erection [N48.30] / Chordee [N48.89] DR : Fortunato Hammond INS : PRIMARY CIGNA / SECONDARY Pat Toth Pre-Certification Coordinator Department of Surgery [facility] ([facility] Work: [phone] [email or web address] PERSON documented in this encounter Plan of Treatment Not on file documented as of this encounter Visit Diagnoses Not on filedocumented in this encounter Care Teams Clay Preparation Supervisor Relationship Specialty Start Date End Date Tiff Frost MD [address] [place] [address] PCP - General Pediatrics 10/17/20 documented as of this encounter
--- OUTSIDE RECORDS SUMMARY | 2024-07-20 05:20 | XMS_ITS | Encounter Summary ---
Author Organization [facility] Address [address] [place] [address] Care Team Providers Care Employment Adjudicator Name Role Phone Tiff Frost MD Primary Care Provider [phone] Encounter Details Date Type Department Care Team (Late st Contact Info) Description 11/20/2020 Orders Only [facility] Testing Site - [place], [place] [address] [place] [id number] Fortunato Hammond MD [address] [place] [address] [address] [place] [address] Pre-procedure lab exam (Primary Dx) Social History Tobacco Use Types Packs/Day Years Used Date Smoking Tobacco: Never Sex and Gender Information Value Date Recorded Sex Assigned at Not on file Legal Sex Male 4:15 AM CASINO FLOOR PERSON Gender Identity Not on file Sexual Orientation Not on file documented as of this encounter Progress Notes * Waldo Fall - 11/20/2020 9:53 AM CDT Answer Comment Testing types: Pre-procedure ?? Date of Px/chemo/treatment/placement/transfer 01/01/2021 ?? Testing site patient will be sent to: [place], [place] ?? (Optional) Patient requires saliva test [...] RNA ?? Please select the performing region: [facility] ?? Referral Notes documented in [...] and NAAT . ??Testing performed by the [facility] Molecular Infectious Disease Laboratory. The 2019-Novel Coronavirus [...] [facility] ([facility]) Comment:Testing performed by : [facility], [address] [place] [place]., [address] Employeed in healthcare? No [facility] ([facility]) Comment:Testing performed by : [facility], [address] [place]., [address] status? No CE RNANGELA [facility] ([facility]) Comment:Testing performed by : [facility], [address] [facility] [place]., [address] Group care resident? No [facility] ([facility]) Comment:Testing performed by : [facility], [address] [place]., [address] Hospitalized? Unknown [facility] (CISCO) Comment:Testing performed by : [facility], [address] [place]., [address] Is patient in ICU? Unknown [facility] (CISCO) Comment:Testing performed by : [facility], 1 [facility], [address] Symptomatic as defined by CDC? No [facility]IAN [facility]OR (CISCO) Comment:Testing performed by : [facility], 1 [facility], [address] Nasopharyngeal 12/30/2020 12 :10 PM CDT 12/30/2020 8:24 PM CDT Narrative [facility] (CISCO) - 12/31/2020 5:29 AM CDT What is the reason for testing?->Screening prior to scheduled procedure or surgery us Fortunato Hammond MD LAB MICROBIOLOGY - GENERAL ORDERABLES Final Result [facility] (CISCO) 1 [facility] Department [place] [address] documented in this encounter Visit Diagnoses Diagnosis Pre-procedure lab exam- Primary Pre-procedural laboratory examination Pre-procedure lab exam Pre-procedural laboratory examination documented in this encounter Care Teams Employment Adjudicator Relationship Specialty Start Date End Date Tiff Frost MD [address] [place] [address] PCP - General Pediatrics 10/17/20 documented as of this encounter
--- OUTSIDE RECORDS SUMMARY | 2024-07-20 05:20 | XMS_ITS | Encounter Summary ---
Author Organization [facility] Address [address] [place] [address] Care Team Providers Care Healthcare Network Pricing Consultant Name Role Phone Tiff Frost MD Primary Care Provider [phone] Encounter Details Date Type Department Care Team (Late st Contact Info) Description 05/17/2021 Telephone [facility] Surgeon 1 [place] [address] Trinity Keyes MD [address] [facility] [address] [place], [place] [id number] Social History Tobacco Use Types Packs/Day Years Used Date Smoking Tobacco: Never Sex and Gender Information Value Date Recorded Sex Assigned at Not on file Legal Sex Male 4:15 AM RESIDENCE MANAGER Gender Identity Not on file Sexual [...] on filedocumented in this encounter Care Teams Healthcare Network Pricing Consultant Relationship Specialty Start Date End Date Tiff Frost MD [address] [place] [address] PCP - General Pediatrics 10/17/20 documented as of this encounter
--- OUTSIDE RECORDS SUMMARY | 2024-07-20 05:20 | XMS_ITS | Encounter Summary ---
Author Organization [facility] Address [address] [place] [address] Phone Care Team Providers Care Gas Meter Installer Helper Name Role Phone Tiff Frost MD Primary Care Provider [phone] Encounter Details Date Type Department Care Team (Late st Contact Info) Description 01/16/2021 Telephone 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
--- OUTSIDE RECORDS SUMMARY | 2024-07-20 05:20 | XMS_ITS | Encounter Summary ---
Author Organization [facility] Healthcare Address [address] [place] [address] Care Team Providers Care Facilities Maintenance Manager Name Role Phone Tiff Frost MD Primary Care Provider [phone] Encounter Details Date Type Department Care Team (Late st Contact Info) Description 01/01/2021 2:00 PM CDT - 01/01/2021 7:50 PM CDT Hospital Encounter [facility] [place] [address] Fortunato Hammond MD 1 [facility] [address] [place] [address] Discharge Disposition: Discharge to home or self care Social History Tobacco Use Types Packs/Day Years Used Date Smoking Tobacco: Never Sex and Gender Information Value Date Recorded Sex Assigned at Not on file 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 Gender Identity Not on file Sexual Orientation [...] 01/01/2021 7:2 0 PM CDT Growth Chart: [facility] (Boys, 2-2 0 Years) documented in this encounter Discharge Diagnoses 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 After 4:30 PM during the week, on weekends and holidays, call [phone] and ask to have the Urology Grit Removal Operator Physician paged for you. Discharge Instructions [...] and weekends) ask for the Anesthesia Physician national account representative ?? If your child is vomiting more [...] handout for instructions. Thank you for choosing [facility]! documented in this encounter Medications at Time [...] SERVICE: 01/01/2021 DATE OF : 2005 CSN: [id number] SURGEON: Fortunato Hammond MD CO-SURGEON: SENIOR DESIGN ENGINEER: Ya Dobbins MD PREOPERATIVE DIAGNOSES Congenital penile [...] that you and your doctor have chosen [facility] for this surgery. We hope [...] are located on the 6th floor of [facility]. Please take green Atrium elevators. Check in at the Registration Desk in the Same Day Surgery Waiting Area. Give medication as directed. ?? No makeup, no jewelry (including all body piercings) nail swedish and no metal in hair. ?? Dress [...] while you are still awake. Please call [phone] if you have questions, concerns or are [...] 01/01/2021 documented in this encounter Care Teams Facilities Maintenance Manager Relationship Specialty Start Date End Date Tiff Frost MD [address] [place] [address] PCP - General Pediatrics 10/17/20 documented as of this encounter
--- OUTSIDE RECORDS SUMMARY | 2024-07-20 05:20 | XMS_ITS | Encounter Summary ---
Author Organization [facility] Address [address] [place] [address] Care Team Providers Care Wringer Machine Operator Name Role Phone Suhas Collins MD Primary Care Provider [phone] Encounter Details Date Type Department Care Team (Late st Contact Info) Description 03/10/2019 10:55 PM CDT - 03/10/2019 11:14 PM CDT Hospital Encounter [facility] [place] [address] Melody Segura MD 1 [facility] [address] [place] [address] Discharge Disposition: Discharge to home or self care Social History Tobacco Use Types Packs/Day Years Used Date Smoking Tobacco: Never Assessed Sex and Gender Information Value Date Recorded Sex Assigned at Not on file Legal Sex Male 4:15 AM MAORI PHYSIOTHERAPIST Gender Identity Not on file Sexual Orientation [...] joint spaces are normal. Procedure Note John Jhonson MD - 03/11/2019 EXAMINATION: XR SHOULDER RIGHT [...] on filedocumented in this encounter Care Teams Wringer Machine Operator Relationship Specialty Start Date End Date Suhas Collins MD [address] [place] [address] PCP - General 03/10/19 10/16/20 documented as of this encounter
--- OUTSIDE RECORDS SUMMARY | 2024-07-20 05:20 | XMS_ITS | Encounter Summary ---
Author Organization [facility] Address [address] [place] [address] Phone Care Team Providers Care Manager Radiation Name Role Phone Tiff Frost MD Primary Care Provider [phone] Encounter Details Date Type Department Care Team (Late st Contact Info) Description 08/31/2021 Telephone [facility] Surgery One [facility] 2nd [place] [address] [place] [address] Fortnuato Hammond MD 1 [facility] [place] [address] [place], [place] [id number] Social History Tobacco Use Types Packs/Day Years Used Date Smoking Tobacco: Never Sex and Gender Information Value Date Recorded Sex Assigned at Not on file Legal Sex Male 4:15 AM ASSOCIATE DIRECTOR CAREER SERVICES Gender Identity Not on file Sexual Orientation Not on file documented as of this encounter Miscellaneous Notes * Telephone Encounter - Fortunato Hammond MD - 08/31/2021 4:15 PM ASSOCIATE DIRECTOR CAREER SERVICES Rashaad says he developed a large hematoma after procedure late July Swelling nearly resolved Still feels some induration at base He thinks there may be some hinging of the phallus at that point Reassured him that new sutures at base are absorbable (6-8 weeks to dissolve) Unlikely he has ED causing hinging. Not currently sexually active Will observe CIATE DIRECTOR CAREER SERVICES documented in this encounter Plan of Treatment Not on file documented as of this encounter Visit Diagnoses Not on filedocumented in this encounter Care Teams Manager Radiation Relationship Specialty Start Date End Date Tiff Frost MD [address] [place] [address] PCP - General Pediatrics 10/17/20 documented as of this encounter
--- OUTSIDE RECORDS SUMMARY | 2024-07-20 05:20 | XMS_ITS | Encounter Summary ---
Author Organization [facility] Address [address] [place] [address] Care Team Providers Care Highway Maintainer Name Role Phone Suhas Collins MD Primary Care Provider [phone] Reason for Visit * Reason Comments Shoulder Injury Encounter Details Date Type Department Care Team (Late st Contact Info) Description 03/10/2019 11:15 PM CDT - 03/11/2019 12:22 [place] [address] Acute pain of right shoulder (Primary Dx); Pain of right thumb Discharge Disposition: Discharge to home or self care Social History Tobacco Use Types Packs/Day Years Used Date Smoking Tobacco: Never Assessed Sex and Gender Information Value Date Recorded Sex Assigned at Not on file Legal Sex Male 4:15 AM SENIOR CONSTRUCTION MANAGER Gender Identity Not on file Sexual [...] pain and/or fever. Please follow-up with your babysitter in 1 week for re-eval. Please follow-up with orthopedics in 1 week if your pain does not improve. * Attachments The following attachments cannot be sent through Care Everywhere. * LUIS MANUEL (Palestinian) documented in this encounter Medications at Time [...] ED. Pt arrives wrapped up from the security trainer, xrays were ordered in nursing triage, [...] The joint spaces are normal. Procedure Note Jonh Johnson MD - 03/11/2019 EXAMINATION: XR SHOULDER [...] 03/10/2019 documented in this encounter Care Teams Highway Maintainer Relationship Specialty Start Date End Date Suhas Collins MD [address] [place] [address] PCP - General 03/10/19 10/16/20 documented as of this encounter
--- OUTSIDE RECORDS SUMMARY | 2024-07-20 05:20 | XMS_ITS | Encounter Summary ---
Author Organization [facility] Healthcare Address [address] [place] [address] Care Team Providers Care Radiation Control Health Physicist Name Role Phone Tiff Frost MD Primary Care Provider [phone] Encounter Details Date Type Department Care Team (Late st Contact Info) Description 01/01/2021 3:50 PM CDT - 01/01/2021 5:20 PM CDT Surgery [facility] [place] [address] Fortunato Hammond MD [address] [place] [address] [address] [place] [address] CHORDEE REPAIR Surgery Details Date/Time Status Location OR Service Patient Class Case Cl ass Case Type Trauma Case? 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 (Boys, 2-2 0 Years) documented [...] Tuesday, 8 AM to 4:30 PM, call [phone] and ask for a member of your doctor's team. After 4:30 PM during the week, on weekends and holidays, call [phone] and ask to have the Urology Engraver Seals Physician paged for you. Discharge Instructions for [...] and weekends) ask for the Anesthesia Physician controlled atmospheric furnace brazer ?? If your child is vomiting more [...] handout for instructions. Thank you for choosing [facility]! documented in this encounter Medications at [...] SERVICE: 01/01/2021 DATE OF : 2005 CSN: [id number] SURGEON: Fortunato Hammond MD CO-SURGEON: LANGUAGE ASST: Ya Dobbins MD PREOPERATIVE DIAGNOSES Congenital penile [...] that you and your doctor have chosen [facility] for this surgery. We hope that [...] are located on the 6th floor of [facility]. Please take green Atrium elevators. Check in at the Registration Desk in the Same Day Surgery Waiting Area. Give medication as directed. ?? No makeup, no jewelry (including all body piercings) nail thai and no metal in hair. ?? Dress [...] while you are still awake. Please call [phone] if you have questions, concerns or are [...] 01/01/2021 documented in this encounter Care Teams Radiation Control Health Physicist Relationship Specialty Start Date End Date Tiff Frost MD [address] [place] [address] PCP - General Pediatrics 10/17/20 documented as of this encounter
--- OUTSIDE RECORDS SUMMARY | 2024-07-20 05:20 | XMS_ITS | Encounter Summary ---
Author Organization [facility] Healthcare Address [address] [place] [address] Care Team Providers Care Sound Technician Supervisor Name Role Phone Tiff Frost MD Primary Care Provider [phone] Encounter Details Date Type Department Care Team (Late st Contact Info) Description 07/29/2021 6:56 AM AUTOMATIC CENTRIFUGAL STATION OPERATOR - 07/29/2021 11:55 AM AUTOMATIC CENTRIFUGAL STATION OPERATOR Hospital Encounter [facility] Operating [place] [address] Fortunato Hammond MD 1 [facility] [address] [place] [address] Discharge Disposition: Discharge to home or self care Social History Tobacco Use Types Packs/Day Years Used Date Smoking Tobacco: Never Sex and Gender Information Value Date Recorded Sex Assigned at Not on file Legal Sex Male 4:15 AM AUTOMATIC CENTRIFUGAL STATION OPERATOR Gender Identity Not on file Sexual Orientation Not on file documented as of this encounter Last Filed Vital Signs Vital Sign Reading Time Taken Comments Blood Pressure 122/79 07/29/2021 11:30 AM AUTOMATIC CENTRIFUGAL STATION OPERATOR Pulse 96 07/29/2021 11:30 AM AUTOMATIC CENTRIFUGAL STATION OPERATOR Temperature 36.9 ??C (98.4 ??F) 07/29/2021 1 1:30 AM AUTOMATIC CENTRIFUGAL STATION OPERATOR Respiratory Rate 20 07/29/2021 11:3 0 AM AUTOMATIC CENTRIFUGAL STATION OPERATOR Oxygen Saturation 96% 07/29/2021 11: 30 AM AUTOMATIC CENTRIFUGAL STATION OPERATOR Inhaled Oxygen Concentration - - Weight 63 kg (138 lb 14.2 oz) 07/29/2021 7:00 AM AUTOMATIC CENTRIFUGAL STATION OPERATOR Height 178 cm (5' 10.08 ) 07/29/2021 7:00 AM AUTOMATIC CENTRIFUGAL STATION OPERATOR Body Mass Index 19.88 07/29/2021 7:00 AM AUTOMATIC CENTRIFUGAL STATION OPERATOR Body Mass Index Percentile 19.64% 07/29/2021 7:0 0 AM AUTOMATIC CENTRIFUGAL STATION OPERATOR Growth Chart: [facility] (Boys, 2-2 0 Years) documented [...] uncomplicated - UNSPECIFIED ASTHMA, UNCOMPLICATED Other senior care (current) drug therapy - OTHER CORRECTION (CURRENT) DRUG THERAPY watermelon harvesting supervisor (current) use of non-steroidal anti-inflammatories (nsaid) - GLOBAL COMPENSATION ANALYST (CURRENT) USE OF NON-STEROIDAL ANTI-INFLAMMATORIES (NSAID) Allergy status to penicillin - ALLERGY STATUS TO PENICILLIN Allergy status to other antibiotic agents - ALLERGY STATUS TO OTHER ANTIBIOTIC AGENTS documented in this encounter Discharge Instructions * Discharge Instructions* Ana Troncoso RN - 07/29/2021 10:12 AM AUTOMATIC CENTRIFUGAL STATION OPERATOR Medicines: - Tylenol and Ibuprofen scheduled for [...] needed. Call the urology office with issuesat [phone]. Tuesday through Tuesday, 8 AM to 4:30 PM, call [phone] and ask for a member of your doctor's team. After 4:30 PM during the week, on weekends and holidays, call [phone] and ask to have the Urology Firefighting Equipment Specialist Physician paged for you. Discharge Instructions for Children Receiving Anesthesia Although your child is now awake and ready to go home, some of the side effects of anesthesia may last for several hours. If you have any concerns, please use the following contact numbers: Emergencies Call [phone] ?? If your child is having a hard time breathing ?? Unable to speak or cry because of difficulty breathing ?? Lips or fingernails are turning blue or white ?? You are unable to wake your child Non-Emergencies Call Same Day Surgery (during regular business hours) Call (after 4pm and weekends) ask for the Anesthesia Physician information assurance manager ?? If your child is vomiting [...] handout for instructions. Thank you for choosing [facility]! MATIC CENTRIFUGAL STATION OPERATOR documented in this encounter Medications at Time [...] have some residual lateral curvature Consent signed MATIC CENTRIFUGAL STATION OPERATOR Source Note - Tremayne Hernandez NP - 07/29/2021 7:27 AM AUTOMATIC CENTRIFUGAL STATION OPERATOR Images from the original note were not [...] (VITAMIN D) 50,000 unit capsule 06/03/21 -- Trentno Osuna MD hydrocortisone (ANUSOL-HC) 2.5 % rectal [...] for requested labs within last 720 hours. MATIC CENTRIFUGAL STATION OPERATOR MATIC CENTRIFUGAL STATION OPERATOR documented in this encounter Nursing Notes * Nicole Mcgovern RN - 07/29/2021 11:45 AM CST All discharge information given to and explained to mother. Mother verbalized understanding with nofurther questions at this time. MATIC CENTRIFUGAL STATION OPERATOR documented in this encounter Miscellaneous Notes * Op Note - Fortunato Hammond MD - 07/29/2021 8:53 AM CST NAME: Rashaad Rodney DATE OF SERVICE: 07/29/2021 DATE OF : 2005 CSN: [id number] SURGEON: Fortunato Hammond MD CO-SURGEON: LINK TRAINER MAINTENANCE MAN: Trinity Keyes MD PREOPERATIVE DIAGNOSES Congenital penile [...] I was present for the entire case. MATIC CENTRIFUGAL STATION OPERATOR * Pre-Procedure Instructions - Radha Pope RN - 07/28/2021 10:54 AM CST We are pleased that you and your doctor have chosen [facility] for this surgery. We hope [...] are located on the 6th floor of [facility]. Please take green Atrium elevators. Check in at the Registration Desk in the Same Day Surgery Waiting Area. Give medication as directed. ?? No makeup, no jewelry (including all body piercings) nail slovak and no metal in hair. ?? Dress [...] while you are still awake. Please call [phone] if you have questions, concerns or are delayed on day of surgery. MATIC CENTRIFUGAL STATION OPERATOR documented in this encounter Plan of Treatment Not on file documented as of this encounter Procedures Procedure Name Priority Date/Time Associated Diagnosis Comments CHORDEE REPAIR 07/29/2021 8:30 AM AUTOMATIC CENTRIFUGAL STATION OPERATOR Painful penile erection Chordee Special Needs covid [...] = 650 mg Given 07/29/2021 10:26 AM AUTOMATIC CENTRIFUGAL STATION OPERATOR 650 mg Lactated Ringer's (LR) infusion 100 mL/hr, intravenous, Continuous, Starting on Tue07/29/21 at 1045, Phase I Rate/Dose Verify 07/29/2021 10:43 AM AUTOMATIC CENTRIFUGAL STATION OPERATOR 100 mL/hr 100 mL/hr lidocaine 1% buffered injection 0.1 mL 0.1 mL, intradermal, Once as needed, other, IV insertion, Starting on Tue07/29/21 at 0718, For 1 dose, Pre-Op, Maximum daily dose 0.1 mL/kg Administer immediately prior to procedure. Given 07/29/2021 7:44 AM AUTOMATIC CENTRIFUGAL STATION OPERATOR 0.1 mL oxyCODONE (ROXICODONE) tablet 5 mg 5 mg, oral, Once as needed, other, for non-acute pain only after treatment of pain with non-opioid pain medication, if co-ordered, Starting on Tue07/29/21 at 1010, For 6 hours, Phase I, Maximum dose = 10 mg; may repeat in 2-4 hours as needed for continued ongoing pain., Indications: PainIndications:Pain Given 07/29/2021 10:26 AM AUTOMATIC CENTRIFUGAL STATION OPERATOR 5 mg documented in this encounter Discontinued [...] Recently Administered Medications Times are shown in AUTOMATIC CENTRIFUGAL STATION OPERATOR. Continuous Medication Order 07/27/2021 07/28/2021 07/29/2021 Lactated [...] 07/29/2021 documented in this encounter Care Teams Sound Technician Supervisor Relationship Specialty Start Date End Date Tiff Frost MD [address] [place] [address] PCP - General Pediatrics 10/17/20 documented as of this encounter
--- OUTSIDE RECORDS SUMMARY | 2024-07-20 05:20 | XMS_ITS | Encounter Summary ---
Author Organization [facility] Healthcare Address [address] [place] [address] Care Team Providers Care Center Lead Consultant Name Role Phone Tiff Frost MD Primary Care Provider [phone] Encounter Details Date Type Department Care Team (Late st Contact Info) Description 07/29/2021 8:30 AM DEPARTMENT OF MATHEMATICS CHAIR - 07/29/2021 9:30 AM [facility] Surgery [facility] [place] [address] Fortunato Hammond MD [address] [place] [address] [address] [place] [address] CHORDEE REPAIR- revision Surgery Details Date/Time Status Location OR Service Patient Class Case Cl ass Case Type Trauma Case? 07/29/2021 8:30 AM Posted [facility] OPERATING ROOM OR Urology Outpatient Elective [...] on file Legal Sex Male 4:15 AM DEPARTMENT OF MATHEMATICS CHAIR Gender Identity Not on file Sexual Orientation Not on file documented as of this encounter Last Filed Vital Signs Vital Sign Reading Time Taken Comments Blood Pressure 126/91 07/29/2021 7:00 AM DEPARTMENT OF MATHEMATICS CHAIR Pulse 86 07/29/2021 7:00 AM DEPARTMENT OF MATHEMATICS CHAIR Temperature 36.6 ??C (97.9 ??F) 07/29/2021 8:25 AM CS T Respiratory Rate 12 07/29/2021 7:00 AM DEPARTMENT OF MATHEMATICS CHAIR Oxygen Saturation 97% 07/29/2021 7:00 AM DEPARTMENT OF MATHEMATICS CHAIR Inhaled Oxygen Concentration - - Weight 63 kg (138 lb 14.2 oz) 07/29/2021 7:00 AM DEPARTMENT OF MATHEMATICS CHAIR Height 178 cm (5' 10.08 ) 07/29/2021 7:00 AM DEPARTMENT OF MATHEMATICS CHAIR Body Mass Index 19.88 07/29/2021 7:00 AM DEPARTMENT OF MATHEMATICS CHAIR Body Mass Index Percentile 19.64% 07/29/2021 7:0 0 AM DEPARTMENT OF MATHEMATICS CHAIR Growth Chart: [facility] (Boys, 2-2 0 Years) documented in this encounter Discharge Instructions * Discharge Instructions* Ana Troncoso RN - 07/29/2021 10:12 AM DEPARTMENT OF MATHEMATICS CHAIR Medicines: - Tylenol and Ibuprofen scheduled for [...] needed. Call the urology office with issuesat [phone]. Tuesday through Tuesday, 8 AM to 4:30 PM, call [phone] and ask for a member of your doctor's team. After 4:30 PM during the week, on weekends and holidays, call [phone] and ask to have the Urology Poultry Process Worker Physician paged for you. Discharge Instructions for [...] and weekends) ask for the Anesthesia Physician sergeant of corrections ?? If your child is vomiting more [...] handout for instructions. Thank you for choosing [facility]! RTMENT OF MATHEMATICS CHAIR documented in this encounter Medications at Time [...] have some residual lateral curvature Consent signed RTMENT OF MATHEMATICS CHAIR Source Note - Tremayne Hernandez NP - 07/29/2021 7:27 AM DEPARTMENT OF MATHEMATICS CHAIR Images from the original note were not [...] for requested labs within last 720 hours. RTMENT OF MATHEMATICS CHAIR RTMENT OF MATHEMATICS CHAIR documented in this encounter Nursing Notes * Nicole Mcgovern RN - 07/29/2021 11:45 AM CST All discharge information given to and explained to mother. Mother verbalized understanding with nofurther questions at this time. RTMENT OF MATHEMATICS CHAIR documented in this encounter Miscellaneous Notes * Op Note - Fortunato Hammond MD - 07/29/2021 8:53 AM CST NAME: Rashaad Rodney DATE OF SERVICE: 07/29/2021 DATE OF : 2005 CSN: [id number] SURGEON: Fortunato Hammond MD CO-SURGEON: ELECTRIC REFRIGERATOR PREPARER: Trinity Keyes MD PREOPERATIVE DIAGNOSES Congenital penile [...] I was present for the entire case. RTMENT OF MATHEMATICS CHAIR * Pre-Procedure Instructions - Radha Pope RN - 07/28/2021 10:54 AM CST We are pleased that you and your doctor have chosen [facility] for this surgery. We [...] are located on the 6th floor of [facility]. Please take green Atrium elevators. Check in at the Registration Desk in the Same Day Surgery Waiting Area. Give medication as directed. ?? No makeup, no jewelry (including all body piercings) nail english and no metal in hair. ?? Dress [...] while you are still awake. Please call [phone] if you have questions, concerns or are delayed on day of surgery. RTMENT OF MATHEMATICS CHAIR documented in this encounter Plan of Treatment Not on file documented as of this encounter Procedures Procedure Name Priority Date/Time Associated Diagnosis Comments CHORDEE REPAIR 07/29/2021 8:30 AM DEPARTMENT OF MATHEMATICS CHAIR Painful penile erection Chordee Special Needs covid [...] = 650 mg Given 07/29/2021 10:26 AM DEPARTMENT OF MATHEMATICS CHAIR 650 mg bupivacaine (MARCAINE) 0.5 % (5 mg/mL) preservative free injection As needed, Starting on Tue07/29/21 at 0853, Intra-Op Given 07/29/2021 8:53 AM DEPARTMENT OF MATHEMATICS CHAIR 10 mL Surgical Site Lactated Ringer's (LR) infusion 100 mL/hr, intravenous, Continuous, Starting on Tue07/29/21 at 1045, Phase I Rate/Dose Verify 07/29/2021 10:43 AM DEPARTMENT OF MATHEMATICS CHAIR 100 mL/hr 100 mL/hr lidocaine 1% buffered injection 0.1 mL 0.1 mL, intradermal, Once as needed, other, IV insertion, Starting on Tue07/29/21 at 0718, For 1 dose, Pre-Op, Maximum daily dose 0.1 mL/kg Administer immediately prior to procedure. Given 07/29/2021 7:44 AM DEPARTMENT OF MATHEMATICS CHAIR 0.1 mL oxyCODONE (ROXICODONE) tablet 5 mg 5 mg, oral, Once as needed, other, for non-acute pain only after treatment of pain with non-opioid pain medication, if co-ordered, Starting on Tue07/29/21 at 1010, For 6 hours, Phase I, Maximum dose = 10 mg; may repeat in 2-4 hours as needed for continued ongoing pain., Indications: PainIndications:Pain Given 07/29/2021 10:26 AM DEPARTMENT OF MATHEMATICS CHAIR 5 mg sodium chloride 0.9% irrigation As needed, Starting on Tue07/29/21 at 0935, Intra-Op Given 07/29/2021 9:35 AM DEPARTMENT OF MATHEMATICS CHAIR 100 mL Surgical Site documented in this [...] Recently Administered Medications Times are shown in DEPARTMENT OF MATHEMATICS CHAIR. Continuous Medication Order 07/27/2021 07/28/2021 07/29/2021 Lactated [...] 07/29/2021 documented in this encounter Care Teams Center Lead Consultant Relationship Specialty Start Date End Date Tiff Frost MD [address] [place] [address] PCP - General Pediatrics 10/17/20 documented as of this encounter
--- OUTSIDE RECORDS SUMMARY | 2024-07-20 05:20 | XMS_ITS | Clinical Summary ---
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 Gender Identity Not on file Sexual Orientation Not on file Obstetrics History Last Filed Vital Signs Vital Sign Reading Time Taken Comments Blood Pressure 122/79 07/29/2021 11:30 AM LEAD FABRICATOR Pulse 96 07/29/2021 11:30 AM LEAD FABRICATOR Temperature 36.9 ??C (98.4 ??F) 07/29/2021 11:[address] Respiratory Rate 20 07/29/2021 11:30 AM LEAD FABRICATOR Oxygen Saturation 96% 07/29/2021 11:30 AM LEAD FABRICATOR Inhaled Oxygen Concentration - - Weight 63 kg (138 lb 14.2 oz) 07/29/2021 7:00 AM LEAD FABRICATOR Height 178 cm (5' 10.08 ) 07/29/2021 7:00 AM LEAD FABRICATOR Body Mass Index 19.88 07/29/2021 7:00 AM LEAD FABRICATOR Plan of Treatment Health Maintenance Due Date [...] 03/12/2016 Meningococcal Vaccine Completed 10/03/2020, 015 Insurance [facility] CLAIM[facility] [employer] [facility]S [place] [address] [facility] [employer] [facility] Advance Directives For more information, please contact: [phone] * Full Code (Latest Code Status on File) Date Activated Date Inactivated Comments 07/29/2021 7:18 AM 07/29/2021 4:01 PM * Full Code Date Activated Date Inactivated Comments 01/01/2021 2:27 PM 01/02/2021 12:08 AM Care Teams Spear Fisher Relationship Specialty Start Date End Date Tiff Frost MD [address] [place] [address] PCP - General Pediatrics 10/17/20
--- OUTSIDE RECORDS SUMMARY | 2024-07-20 05:20 | XMS_ITS | Encounter Summary ---
Author Organization 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
--- OUTSIDE RECORDS SUMMARY | 2024-07-20 05:20 | XMS_ITS | Encounter Summary ---
Author Organization [facility] Healthcare Address [address] [place] [address] Care Team Providers Care Stone Paver Name Role Phone Tiff Frost MD Primary Care Provider [phone] Encounter Details Date Type Department Care Team (Late st Contact Info) Description 10/31/2023 Orders Only [facility] Healthcare Occupatiuonal Health [address] [facility] [address] (Third Floor) [place], [place] [id number] Sandip Guerra MD [address] [facility] [address] [place], [place] [phone] Pre-employment health screening examination (Primary Dx) Social History Tobacco Use Types Packs/Day Years Used Date Smoking Tobacco: Never Sex and Gender Information Value Date Recorded Sex Assigned at Not on file 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 ([facility]) T-SPOT.TB Negative Control Passed [facility] ([facility]) T-SPOT.TB Positive [facility]ed [facility] Comment: Test Performed at: [facility] [address] [place] [address] ??[id number] ? JENNIFER MONTIEL,PHD Blood 10/31/2023 3:06 PM CDT 10/31/2023 3:16 PM CDT Narrative [facility] ([facility]) - 11/02/2023 3:53 PM CDT Bill to [facility] [employer] - [address] Patient is employed by/enrolled at:->[employer] [place] Sandip Guerra MD LAB MICROBIOLOGY - GENERAL OR DERABLES Final Result [facility] [address] [facility] Department [place] [address] documented in this encounter Visit Diagnoses Diagnosis Pre-employment health screening examination- Primary Health examination of defined subpopulation Pre-employment health screening examination Health examination of defined subpopulation documented in this encounter Care Teams Stone Paver Relationship Specialty Start Date End Date Tiff Frost MD [address] [place] [address] PCP - General Pediatrics 10/17/20 documented as of this encounter
--- OUTSIDE RECORDS SUMMARY | 2024-07-20 05:20 | XMS_ITS | Encounter Summary ---
Author Organization [facility] Healthcare Address [address] [place] [address] Care Team Providers Care Family Medicine Physician Assistant Name Role Phone Tiff Frost MD Primary Care Provider Encounter Details Date Type Department Care Team (Late st Contact Info) Description 01/01/2021 4:46 PM CDT Anesthesia Event [facility] [place] [address] Carlton Calvo MD [address] [place] [address] Tremayne Hernandez NP [address] [facility] [place] [address] Anesthesia Record Procedure Summary Procedure Name Responsible [...] Pe nis; 07/03/24 (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, 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 [employer] with LDA Utility); 1213 (Retired LDA, 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 [employer] with LDA Utility) 01/01/21 1743 by Priscilla Mosley RN 07/03/24 1213 by Discharge Provider, Automatic documented in this encounter Social History Tobacco Use Types Packs/Day Years Used Date Smoking Tobacco: Never Sex and Gender Information Value Date Recorded Sex Assigned at Not on file 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 Gender Identity Not on file Sexual Orientation Not on file documented as of this encounter OR Notes * Anesthesia Postprocedure Evaluation - Sera Quintanilla MD - 01/01/2021 7:02 PM CDT Patient: Rashaad Rodney Procedure Summary Date: 01/01/21 Room / Location: [address] OPERATING ROOM Anesthesia Start: 164 Anesthesia Stop: 1824 Procedure: CHORDEE REPAIR (N/A Penis) 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]) Providers: Fortunato Hammond MD Responsible Provider: Carlton Calvo MD Anesthesia Type: general ASA Status: [...] Procedure Name Priority Date/Time Associated Diagnosis Comments [place] AN PROCEDURE PLACEHOLDER Routine 01/01/2021 5:13 PM CDT [place] AN ELECTIVE SUPRAGLOTTIC AIRWAY Routine 01/01/2021 5:13 PM CDT documented in this encounter Results * W[place] AN ELECTIVE SUPRAGLOTTIC AIRWAY, [place] AN PROCEDURE PLACEHOLDER (01/01/2021 5:13 PM CDT) [...] mg documented in this encounter Care Teams Family Medicine Physician Assistant Relationship Specialty Start Date End Date Tiff Frost MD [address] [place] [address] PCP - General Pediatrics 10/17/20 documented as of this encounter
== END 2024-07-15 12:56 | disposition home or self-care (01) ==
PROVIDERS: Emergency Provider Nurse Practitioner Family
DX: R11.2 Nausea with vomiting, unspecified (principal); R19.7 Diarrhea, unspecified; J45.909 Unspecified asthma, uncomplicated
CPT/HCPCS: 99213; G0463